=== PATIENT | male | born 1930 | race Caucasian/White ===

== ENCOUNTER 2019-01-16 19:38 | Emergency (ER) | payer MEDICARE ==
[~2019-01-16] VITALS: Wt 102.1 kg
[~2019-01-16 19:38] MED LIST: ASPIRIN325 MG PO; DILTIAZEM HCL30 MG PO; DOXYCYCLINE MO100 MG PO; DOXYCYCLINE100 M2 PO; LASIX20 MG PO; LISINOPRIL2.5 MG PO; MAGNESIUM OXID400 MG PO; NADOLOL40 MG PO; NOVOLOG 70/30 M10 ML SC; PANTOPRAZOLE40 M1 PO; PANTOPRAZOLE40 MG PO; POTASSIUM CITRA PO; RITE AID ACID150 MG PO; SIMVASTATIN40 MG PO; STOOL SOFTENER100 MG PO; TOPROL XL50 MG PO; UROCIT-K 1010 MEQ PO; VITAMIN D1000 IU PO; VITAMIN D31000 IU PO; [UNRECOGNIZED DRUG - OTHER]
[2019-01-16] MEDS ORDERED: PREDNISONE20 M1 PO (20:00)
== END 2019-01-16 20:13 | disposition home or self-care (01) ==
LOC: ED 19:38
DX: T63.441A Toxic effect of venom of bees, accidental (unintentional), initial encounter (principal); Z79.899 Other long term (current) drug therapy; Z79.82 Long term (current) use of aspirin; Y92.89 Other specified places as the place of occurrence of the external cause

== ENCOUNTER 2019-09-07 11:00 | Inpatient (IN) | payer MEDICARE ==
[~2019-09-07] VITALS: Ht 177.8 cm; Wt 96.2 kg
[~2019-09-07 11:00] MED LIST changes: +PREDNISONE20 M1 PO
[2019-09-07 11:16] VITALS: BP 170/105
[2019-09-07 11:57] LABS: BASO % 0.1 % (0.0-1.0); EOS % 0.1 % (1.0-4.0); HEMOGLOBIN 14.8 g/dl (14.0-18.0); MEAN CELL VOLUME 99.5 fl (80.0-94.0); MEAN CORPUSCULAR HGB 33.5 pg (27.0-31.0); MEAN CORPUSCULAR HGB CONC 33.6 g/dl (33.0-37.0); MEAN PLATELET VOLUME 10.6 fl (9.6-12.3); MONO # 0.5 10*3/uL (0.1-1.0); MONO % 5.5 % (3.0-9.0); PLATELET COUNT AUTOMATED 194 10*3/uL (130-400); RED BLOOD COUNT 4.42 10*6/uL (4.50-5.90); RED CELL DISTRI WIDTH 12.8 % (0-14.5); WHITE BLOOD COUNT 9.6 10*3/uL (4.8-10.8)
[2019-09-07 12:09] LABS: ACT PARTIAL THROMBO TIME 25.2 SECONDS (20.0-32.1)
[2019-09-07 12:15] LABS: ALBUMIN 3.9 gm/dl (3.1-4.5); CREATININE 1.4 mg/dL (0.70-1.30); POTASSIUM 4.8 mmol/L (3.5-5.1); TOTAL PROTEIN 7.6 gm/dL (6.4-8.2)
[2019-09-07 12:19] LABS: THYROID STIM HORMONE (HS) 3.9 uIU/ml (0.358-4.75); TROPONIN I 0.485 ng/ml (<0.045)
[2019-09-07 13:13] VITALS: BP 123/73
[2019-09-07 14:56] LABS: BACTERIA TRACE; BILIRUBIN NEGATIVE (NEGATIVE); BLOOD 3+ (NEGATIVE); CLARITY SL CLOUDY (CLEAR); COLOR YELLOW (YELLOW); EPITHELIAL CELLS 0-2; GLUCOSE 3+ (NEGATIVE); KETONE 2+ (NEGATIVE); LEUKO ESTERASE NEGATIVE (NEGATIVE); MUCOUS 1+; NITRITE NEGATIVE (NEGATIVE); RBC 51-100 rbc/hpf (0-2); UROBILINOGEN 0.2 E.U./dl (0.2-1.0); WBC 0-2 wbc/hpf (0-5)
[2019-09-07] MEDS ORDERED: MONTELUKAST SOD10 MG PO (15:30)
[2019-09-07 15:44] VITALS: BP 154/78
[2019-09-07 16:00] VITALS: BP 154/78
[2019-09-07 20:00] VITALS: BP 136/72
[2019-09-08 05:54] LABS: ALBUMIN 3.3 gm/dl (3.1-4.5); ALKALINE PHOSPHATASE 43 U/L (45-117); BUN 18 mg/dl (7-24); CHLORIDE 109 mmol/L (98-107); CHOLESTEROL 118 mg/dL (<200); CREATININE 0.88 mg/dL (0.70-1.30); HDL CHOLESTEROL 37 mg/dl (40-60); LDH 201 U/L (87-241); LDL CHOLESTEROL 56 mg/dL (9-159); PHOSPHOROUS 2.7 mg/dL (2.5-4.9); POTASSIUM 3.9 mmol/L (3.5-5.1); SGOT/AST 35 IU/L (3-35); SGPT/ALT 25 U/L (12-78); SODIUM 140 mmol/L (136-145); TOTAL PROTEIN 6.4 gm/dL (6.4-8.2); TRIGLYCERIDES 126 mg/dl (<150); VLDL CHOLESTEROL 25 mg/dL (6-40)
[2019-09-08 06:05] LABS: BASO % 0.3 % (0.0-1.0); EOS # 0.1 10*3/uL (0.0-0.4); EOS % 1.2 % (1.0-4.0); HEMATOCRIT 37.6 % (42.0-52.0); HEMOGLOBIN 12.5 g/dl (14.0-18.0); LYMPH # 2.1 10*3/uL (1.3-4.4); LYMPH % 26.5 % (27.0-41.0); MEAN CELL VOLUME 99.2 fl (80.0-94.0); MEAN CORPUSCULAR HGB CONC 33.2 g/dl (33.0-37.0); MEAN PLATELET VOLUME 10.3 fl (9.6-12.3); MONO # 0.8 10*3/uL (0.1-1.0); MONO % 9.9 % (3.0-9.0); NEUT # 4.8 10*3/uL (2.3-7.9); NEUT % 61.8 % (47.0-73.0); PLATELET COUNT AUTOMATED 150 10*3/uL (130-400); RED BLOOD COUNT 3.79 10*6/uL (4.50-5.90); RED CELL DISTRI WIDTH 12.9 % (0-14.5); WHITE BLOOD COUNT 7.7 10*3/uL (4.8-10.8)
[2019-09-08 06:09] LABS: TROPONIN I 0.257 ng/ml (<0.045)
[2019-09-08 07:50] LABS: VITAMIN D, 25-HYDROXY 31.4 ng/mL (30-100)
[2019-09-08 08:00] VITALS: BP 130/56
[2019-09-08 12:00] VITALS: BP 160/58
[2019-09-08 16:00] VITALS: BP 146/68
[2019-09-08 20:00] VITALS: BP 160/78
[2019-09-09] VITALS: BP 162/77
[2019-09-09 08:00] VITALS: BP 149/67
[2019-09-09] MEDS ORDERED: AVPAK AZITHROM250 MG PO (11:28)
[2019-09-09] MEDS ORDERED: PLAQUENIL200 MG PO (11:28)
[2019-09-09] MEDS ORDERED: OMNICEF300 MG PO (11:28)
[2019-09-09] MEDS ORDERED: TAMIFLU 75MG CA75 MG PO (11:28)
[2019-09-09] MEDS ORDERED: ASPIR LOW81 MG PO (11:42)
== END 2019-09-09 12:50 | disposition home or self-care (01) | DRG 871 ==
LOC: ED 11:00 → EDHOLD 14:35 → 5E 14:53
PROVIDERS: Internal Medicine; Student in an Organized Health Care Education/Training Program; ADMIT Emergency Medicine
DX: A41.9 Sepsis, unspecified organism (principal); N17.0 Acute kidney failure with tubular necrosis; J18.9 Pneumonia, unspecified organism; E87.2 Acidosis; S26.90XA Unspecified injury of heart, unspecified with or without hemopericardium, initial encounter; I24.8 Other forms of acute ischemic heart disease; E87.1 Hypo-osmolality and hyponatremia; I47.1 Supraventricular tachycardia; E44.1 Mild protein-calorie malnutrition; E86.0 Dehydration; R68.89 Other general symptoms and signs; R65.20 Severe sepsis without septic shock; R74.0 Nonspecific elevation of levels of transaminase and lactic acid dehydrogenase [LDH]; D53.9 Nutritional anemia, unspecified; E11.65 Type 2 diabetes mellitus with hyperglycemia; I10 Essential (primary) hypertension; Z79.899 Other long term (current) drug therapy; Z79.82 Long term (current) use of aspirin; Z96.651 Presence of right artificial knee joint; Z68.30 Body mass index [BMI] 30.0-30.9, adult; H91.90 Unspecified hearing loss, unspecified ear

== ENCOUNTER → 2019-11-03 | Outpatient (CLI) | payer MEDICARE ==
[~2019-11-03] MED LIST changes: +ASPIR LOW81 MG PO; +AVPAK AZITHROM250 MG PO; +MONTELUKAST SOD10 MG PO; +OMNICEF300 MG PO; +PLAQUENIL200 MG PO; +TAMIFLU 75MG CA75 MG PO
[2019-11-03 11:37] LABS: ALBUMIN 3.4 gm/dl (3.1-4.5); ALKALINE PHOSPHATASE 59 U/L (45-117); BUN 27 mg/dl (7-24); CHLORIDE 106 mmol/L (98-107); CREATININE 1.13 mg/dL (0.70-1.30); POTASSIUM 4.2 mmol/L (3.5-5.1); SGOT/AST 66 IU/L (3-35); SGPT/ALT 58 U/L (12-78); SODIUM 137 mmol/L (136-145); TOTAL PROTEIN 6.9 gm/dL (6.4-8.2)
== END | disposition home or self-care (01) ==
LOC: LAB 10:42
PROVIDERS: Student in an Organized Health Care Education/Training Program
DX: E11.65 Type 2 diabetes mellitus with hyperglycemia (principal); R19.7 Diarrhea, unspecified; R60.9 Edema, unspecified; I51.7 Cardiomegaly

== ENCOUNTER → 2019-11-07 | Outpatient (CLI) | payer MEDICARE ==
[~2019-11-07] MED LIST changes: +24 HOUR ALLER15.8 ML NAS; +ESCITALOPRAM OX10 MG PO; +TRULICITY0.75 MG/0. SC; +ZESTORETIC 10-1 EACH PO
== END | disposition home or self-care (01) ==
LOC: CARD 00:10
DX: I08.1 Rheumatic disorders of both mitral and tricuspid valves (principal)

== ENCOUNTER 2019-11-10 16:40 | Emergency (ER) | payer MEDICARE ==
[~2019-11-10] VITALS: Ht 177.8 cm; Wt 95.3 kg
[~2019-11-10 16:40] MED LIST changes: -24 HOUR ALLER15.8 ML NAS; -ESCITALOPRAM OX10 MG PO; -TRULICITY0.75 MG/0. SC; -ZESTORETIC 10-1 EACH PO
[2019-11-10 17:29] LABS: BASO % 0.2 % (0.0-1.0); EOS # 0.1 10*3/uL (0.0-0.4); EOS % 0.9 % (1.0-4.0); HEMATOCRIT 41.9 % (42.0-52.0); LYMPH # 1.4 10*3/uL (1.3-4.4); LYMPH % 17.4 % (27.0-41.0); MEAN CELL VOLUME 97.7 fl (80.0-94.0); MEAN CORPUSCULAR HGB 33.6 pg (27.0-31.0); MEAN CORPUSCULAR HGB CONC 34.4 g/dl (33.0-37.0); MEAN PLATELET VOLUME 9.9 fl (9.6-12.3); MONO # 0.6 10*3/uL (0.1-1.0); MONO % 7.5 % (3.0-9.0); NEUT # 6.1 10*3/uL (2.3-7.9); NEUT % 73.8 % (47.0-73.0); PLATELET COUNT AUTOMATED 164 10*3/uL (130-400); RED BLOOD COUNT 4.29 10*6/uL (4.50-5.90); RED CELL DISTRI WIDTH 12.6 % (0-14.5); WHITE BLOOD COUNT 8.2 10*3/uL (4.8-10.8)
[2019-11-10 17:40] LABS: BUN 22 mg/dl (7-24); CHLORIDE 103 mmol/L (98-107); CREATININE 1.13 mg/dL (0.70-1.30); POTASSIUM 3.8 mmol/L (3.5-5.1); SODIUM 134 mmol/L (136-145)
[2019-11-10 19:26] LABS: BILIRUBIN NEGATIVE (NEGATIVE); BLOOD 1+ (NEGATIVE); CLARITY CLEAR (CLEAR); COLOR YELLOW (YELLOW); GLUCOSE 3+ (NEGATIVE); KETONE NEGATIVE (NEGATIVE); LEUKO ESTERASE NEGATIVE (NEGATIVE); NITRITE NEGATIVE (NEGATIVE); UROBILINOGEN 0.2 E.U./dl (0.2-1.0)
[2019-11-10 19:36] LABS: BACTERIA TRACE; EPITHELIAL CELLS 0-2; WBC 0-2 wbc/hpf (0-5)
== END 2019-11-10 19:01 | disposition home or self-care (01) ==
LOC: ED 16:40
PROVIDERS: Emergency Medicine
DX: R53.83 Other fatigue (principal); F32.9 Major depressive disorder, single episode, unspecified; I10 Essential (primary) hypertension; E11.9 Type 2 diabetes mellitus without complications; M19.90 Unspecified osteoarthritis, unspecified site; Z79.899 Other long term (current) drug therapy; Z79.4 Long term (current) use of insulin

== ENCOUNTER 2019-11-12 12:17 | Inpatient (IN) | payer MEDICARE ==
--- NOTE | 2019-11-11 20:00 | NUR ---
CLIENT UNABLE TO REMEMBER WHO I WAS. HE HAS KNOWN ME AND WATCHED ME GROW UP SINCE I WAS 7YRS OLD. TRIED TO REMIND HIM THAT HIS DAUGHTER LORY AND I WERE BEST FRIENDS. PROCCUPIED WITH IS THROAT LOZENGES THAT WAS IN HIS POCKET. REFUSED TO COME DOWN TO DININGROOM TO EAT. SHUTS DOWN CONVERSATION BY TURNING OVER AND COVERING HEAD.
[~2019-11-12] VITALS: Ht 177.8 cm; Wt 95.3 kg
[2019-11-12 12:37] VITALS: BP 159/79
[2019-11-12 13:14] LABS: BASO % 0.2 % (0.0-1.0); EOS # 0.1 10*3/uL (0.0-0.4); EOS % 0.6 % (1.0-4.0); HEMATOCRIT 43.6 % (42.0-52.0); LYMPH # 1.7 10*3/uL (1.3-4.4); LYMPH % 18.4 % (27.0-41.0); MEAN CELL VOLUME 97.3 fl (80.0-94.0); MEAN CORPUSCULAR HGB 33.3 pg (27.0-31.0); MEAN CORPUSCULAR HGB CONC 34.2 g/dl (33.0-37.0); MEAN PLATELET VOLUME 9.9 fl (9.6-12.3); MONO # 0.8 10*3/uL (0.1-1.0); MONO % 8.3 % (3.0-9.0); NEUT # 6.7 10*3/uL (2.3-7.9); NEUT % 72.2 % (47.0-73.0); PLATELET COUNT AUTOMATED 177 10*3/uL (130-400); RED BLOOD COUNT 4.48 10*6/uL (4.50-5.90); RED CELL DISTRI WIDTH 12.6 % (0-14.5); WHITE BLOOD COUNT 9.2 10*3/uL (4.8-10.8)
[2019-11-12 13:25] LABS: ACT PARTIAL THROMBO TIME 24.1 SECONDS (20.0-32.1)
[2019-11-12 13:31] LABS: ALBUMIN 3.8 gm/dl (3.1-4.5); ALKALINE PHOSPHATASE 59 U/L (45-117); BUN 27 mg/dl (7-24); CHLORIDE 101 mmol/L (98-107); CREATININE 1.17 mg/dL (0.70-1.30); LIPASE 129 U/L (73-393); POTASSIUM 4.1 mmol/L (3.5-5.1); SGOT/AST 90 IU/L (3-35); SGPT/ALT 66 U/L (12-78); SODIUM 135 mmol/L (136-145); TOTAL PROTEIN 7.5 gm/dL (6.4-8.2); TROPONIN I < 0.015 ng/ml (<0.045)
[2019-11-12] MEDS ORDERED: ZESTORETIC 10-1 EACH PO (16:08)
[2019-11-12] MEDS ORDERED: ESCITALOPRAM OX10 MG PO (16:08)
[2019-11-12] MEDS ORDERED: TRULICITY0.75 MG/0. SC (16:09)
[2019-11-12] MEDS ORDERED: 24 HOUR ALLER15.8 ML NAS (16:10)
--- NOTE | 2019-11-12 17:08 | NUR ---
REPORT GIVEN TO [facility] NURSE.
--- NOTE | 2019-11-12 17:08 | NUR ---
[facility] HERE AT THIS TIME FOR PATIENT TRANSPORT FOR ADMISSION TO U.
--- NOTE | 2019-11-12 17:17 | NUR ---
RACHEL SHETH a 89 year old M admitted via wheel chair from the ADMITTING as a emergency 72 hr. hold admission. Arrived on unit at 1717. ALLERGIES: NKA. Vital signs are: [id number] 132/85. The client signed the following forms with stated understanding: Authorization For The Release of Medical Information, Clothing List, Consent to Voluntary Admission and Hospitalization, Consent and Release Forms/Receipt of Rights, Acknowledgement of Advance Directive Information, Behavioral Health Consent Form, and Informed Consent of Medications. Admitted under the services of Dr. IAN DRUMMOND,[facility]. A search was conducted and hazardous articles were removed. Client was oriented to the unit. AMOL GOMEZ
[2019-11-12 17:24] LABS: COLOR YELLOW (YELLOW)
[2019-11-12 17:25] LABS: BILIRUBIN NEGATIVE (NEGATIVE); BLOOD NEGATIVE (NEGATIVE); CLARITY CLEAR (CLEAR); GLUCOSE 3+ (NEGATIVE); KETONE NEGATIVE (NEGATIVE); LEUKO ESTERASE NEGATIVE (NEGATIVE); NITRITE NEGATIVE (NEGATIVE); PH 6.5 (5.0-9.0); SPECIFIC GRAVITY 1.015 (1.005-1.030); UROBILINOGEN 0.2 E.U./dl (0.2-1.0)
[2019-11-12 17:26] VITALS: BP 132/85
--- NOTE | 2019-11-12 17:26 | NUR ---
SPOKE WITH DR BUITRAGO AND ADVISED OF MEDICAL MANAGEMENT CONSULT NEEDED PER DR LINDSEY CONSULT UNDER DR العلي. NO FURTHER ORDERS AT THIS TIME.
[2019-11-12 17:27] LABS: EPITHELIAL CELLS 0-2; WBC 0-2 wbc/hpf (0-5)
[2019-11-12 17:28] VITALS: BP 132/85
--- NOTE | 2019-11-12 17:59 | NUR ---
DR RICHARD ON UNIT TO ASSESS PT. PER DR RICHARD ORDER BLOODSUGAR CHECKS, ACHS.
--- NOTE | 2019-11-12 20:10 | NUR ---
CLIENT UNABLE TO RECOGNIZE ME EVEN THOUGH HE HAS KNOWN ME SINCE I WAS 7 YRS OLD. I WAS BEST FRIENDS WITH HIS DAUGHTER LORY AND WE LIVED AT EACH OTHERS HOMES. TRIED TO REMIND HIM BUT UNSUCCESSFUL. MORE ORIENTED TO PRESENT LIKE HE WAS SUPPOSE TO BE IN THE [place] REPRESENTING THE CIVIL WAR. STATES HE HAS NO WILL TO LIVE, HE JUST WANTS TO LAY IN BED AND . SAYS HE HAS NOTHING LEFT. DISCUSSED HIS GRANDCHILDREN AND CHILDREN BUT NO CHANGE IN HIS THOUGHT PROCESS. REFUSED TO COME DOWN TO DININGROOM FOR SNACK. HE DOES SHUT DOWN WHEN HE GETS FRUSTRATED. HE WILL TURN AWAY COVER HEAD AND START TO CRY. WHEN I TRIED TO COMFORT HIM HE REPLIED "THANKS FOR THE TALK GO AWAY". REFUSED PM CARE
[2019-11-12 20:22] VITALS: BP 135/85
--- NOTE | 2019-11-13 02:37 | NUR ---
24 HR chart check completed.
--- NOTE | 2019-11-13 04:37 | NUR ---
YELLING OUT "I CAN'T SLEEP I can't do this" WENT TO TALK WITH HIM BUT UNABLE TO REDIRECT THAT HE HAS SLEPT, TOLD ME HE DIDN'T SLEEP, CAN'T PEE BECAUSE HE HASN'T HAD HIS LOZENGES, FOOD OR WATER. PROVIDED A CUP OF WATER FROM HIS DRESSER. INFORMED HIM WE WILL ASK DOCTOR FOR LOZENGES, AND THAT HE WAS ENCOURAGED TO COME TO DININGROOM TO EAT BUT HE REFUSED. YELLED NO I'M NOT GOING THERE. TURNED OVER AND COVERED HEAD. REFUSED TO SPEAK. WILL CONTINUE TO MONITOR.
--- NOTE | 2019-11-13 06:39 | NUR ---
BSG 157. NO COVERAGE UNTIL CERTAIN CLIENT IS GOING TO EAT BREAKFAST.
--- NOTE | 2019-11-13 06:39 | NUR ---
BSG 157. NO COVERAGE UNTIL CERTAIN CLIENT IS GOING TO EAT BREAKFAST.
[2019-11-13 07:44] VITALS: BP 151/65
--- NOTE | 2019-11-13 07:59 | NUR ---
Occupational therapy orders and nursing screen received. Will follow up with patient for completion of an OT evaluation. Thank you. Ginger Jones, OTR/L
--- NOTE | 2019-11-13 08:15 | NUR ---
Treatment Plan meeting was held via telephone with Dr. Mims, JOSE A Natarajan RN, and Cold Roll Inspector. Plan for discharge Next week. Will follow with family for discharge planning.
--- NOTE | 2019-11-13 08:15 | NUR ---
PHYSICAL THERAPY Screen and PT eval received will follow thank you Staci Santoro PT
[2019-11-13 08:49] LABS: BASO % 0.3 % (0.0-1.0); EOS # 0.1 10*3/uL (0.0-0.4); EOS % 1.3 % (1.0-4.0); HEMATOCRIT 47.4 % (42.0-52.0); LYMPH % 33.1 % (27.0-41.0); MEAN CELL VOLUME 98.3 fl (80.0-94.0); MEAN CORPUSCULAR HGB 33.2 pg (27.0-31.0); MEAN CORPUSCULAR HGB CONC 33.8 g/dl (33.0-37.0); MEAN PLATELET VOLUME 10.3 fl (9.6-12.3); MONO # 0.7 10*3/uL (0.1-1.0); NEUT # 5.1 10*3/uL (2.3-7.9); NEUT % 57.1 % (47.0-73.0); PLATELET COUNT AUTOMATED 197 10*3/uL (130-400); RED BLOOD COUNT 4.82 10*6/uL (4.50-5.90); RED CELL DISTRI WIDTH 12.7 % (0-14.5)
[2019-11-13 09:19] LABS: ALBUMIN 3.9 gm/dl (3.1-4.5); ALKALINE PHOSPHATASE 58 U/L (45-117); BUN 23 mg/dl (7-24); CHLORIDE 101 mmol/L (98-107); CHOLESTEROL 153 mg/dL (<200); CREATININE 1.17 mg/dL (0.70-1.30); HDL CHOLESTEROL 50 mg/dl (40-60); LDL CHOLESTEROL 78 mg/dL (9-159); POTASSIUM 4.3 mmol/L (3.5-5.1); SGOT/AST 91 IU/L (3-35); SGPT/ALT 64 U/L (12-78); SODIUM 134 mmol/L (136-145); TOTAL PROTEIN 7.7 gm/dL (6.4-8.2); TRIGLYCERIDES 126 mg/dl (<150); VLDL CHOLESTEROL 25 mg/dL (6-40)
--- NOTE | 2019-11-13 09:51 | NUR ---
PHYSICAL THERAPY Physical Therapy evaluation completed on 3N with full evaluation to follow. Low complexity PT evaluation per chart review and evaluation, [id number]. Recommend physical therapy per plan of care and Home Health upon discharge. Thank you for this referral. Aisha Gonzalez,PT,DPT
[2019-11-13 10:13] LABS: VITAMIN D, 25-HYDROXY 38.7 ng/mL (30-100)
--- NOTE | 2019-11-13 10:13 | NUR ---
DR. ADAM NOTIFIED NOTIFIED OF PODIARTY CONSULT FOR NAIL CARE.
--- NOTE | 2019-11-13 10:18 | NUR ---
Occupational Therapy evaluation completed on 3N with full evaluation to follow. Recommend occupational therapy per plan of care and return home upon discharge. Thank you for this referral. Angelina Verma OTR/L
--- NOTE | 2019-11-13 12:05 | NUR ---
Spoke with patient in Quietroom area. Pt. states he is "Feeling Hopeless since they changed his Insulin Around at home he is struggling to control his blood sugars". "Feeling overwhelmed due to not being able to do things he normally did before that Virus". Pt. is very Hard of Hearing. Pt. Lives at Home alone still drives. His daughter Ami Lives in [place] and he talks to he every day. Pt. states he has "Been having issues with his bowels and feeling sad due to not being able to go to cheondoism" "I miss my ". Pt. tearful. Reassurance Provided. Will Follow.
--- NOTE | 2019-11-13 12:48 | NUR ---
Spoke to [facility] at [facility] regarding precertification for inpatient behavioral health. Information given. Awaiting return call. Pending auth # [id number].
--- NOTE | 2019-11-13 13:20 | NUR ---
P: depressed state, states he just wants to lay down and , "I just cant get moving" I: Spoke with pt about interaction and ability to get moving increases energy and ability to move will help. Also spoke with pt about things he enjoys, due to [place] he has a hard time communicating and will be come frustrated, attempted to type with pt which he was not receptive to. R: Pt encouraged to get up for breakfast, came to lounge, then got shower shorlty after consuming meal. Smiling when spoken to continues to isolate with himself. P: continue to promote pt ambulation, and activities with group surroundings. no HI. SI statements are passive with no plans, medication compliant this shift. eating without good appetite.
--- NOTE | 2019-11-13 13:33 | NUR ---
IP 10 days daya per Amalia at [facility], ARTIE/NRD 11/20. Ref # [id number]
--- NOTE | 2019-11-13 14:47 | NUR ---
Attempted to call patient daughter Ami to discuss discharge planning. Unable to leave a message.
--- NOTE | 2019-11-13 15:18 | NUR ---
Spoke with Patient Daughter Ami via telephone. Ami states that she would like for Pt. to return home at discharge and that he may need some home health. Ami states that patient has been struggling with being at home during the virus. Pt. Lives alone and still drives. Ami states patient may benefit from Home Health at discharge.
--- NOTE | 2019-11-13 15:28 | NUR ---
Shift chart check completed.
--- NOTE | 2019-11-13 17:12 | NUR ---
PT COMPLAINT THAT BATTERY IN LEFT HEARING AID IS GOING , ATTEMPTED TO REPLACE WITH PT SIZE 13 IN STORAGE, THIS IS NOT THE PROPER SIZE. DAUGHTER NOTFIED AND WILL ATTEMPT TO FIND PACKAGES SHE JUST BOUGHT.
[2019-11-13 19:57] VITALS: BP 131/66
--- NOTE | 2019-11-13 21:35 | NUR ---
CAME DOWN FOR SNACK. APOLOGIZED FOR HIS NEGATIVE LANGUAGE YESTERDAY BUT HE IS ONLY TELLING THE TRUTH. CONTINUES TO BLAME CHANGE IN INSULIN THAT CAUSED HIS SUGAR TO GO UP AND WEIGHT GAIN. THE VIRUS HAS CAUSED HIS DESIRE TO NOT LIVE ANYMORE AND TO JOIN HIS . DENIES ANY THOUGHTS OF HURTING SELF BUT JUST WANTS TO GO TO SLEEP AND NOT WAKE UP. EMOTIONAL SUPPORT PROVIDED
--- NOTE | 2019-11-14 02:11 | NUR ---
24 HR chart check completed.
--- NOTE | 2019-11-14 06:19 | NUR ---
SLEPT A BROKEN 5 HOURS.
--- NOTE | 2019-11-14 06:35 | NUR ---
AM BEDSIDE GLUCOSE 89
--- NOTE | 2019-11-14 07:05 | NUR ---
PHYSICAL THERAPY Patient seen this am for therapy visit and was just awakening supine in bed upon therapist arrival. Patient identified by name / and was mostly pleasant this morning voicing no new c/o's. OT assistant womens volleyball coach was also present for observation only this session as patient is Independent with all transfers. Patient ambulates without AD, ad vinay in room to bathroom, distant Supervision, then additional 150'x 1, demonstrating slow, steady britany. Patient tolerated eyes open / closed without LOB, single leg stance, R side 1 second, L side 2 seconds prior to LOB. Patient returned to Quiet room awaiting breakfast, under [facility] staff Supervision. Will continue per POC as tolerated, total treatment time 17 minutes. Jeffrey Vazquez, ELEVATOR INSTALLER APPRENTICE
--- NOTE | 2019-11-14 07:20 | NUR ---
OT NOTE Pt was seen this A.M. 1:1 for 20 minute OT session with SENIOR TREASURY ANALYST and nursing staff present for observation only. Upon arrival pt was supine in bed. Pt identified by name and and had no complaints at this time. Pt transferred supine to sit EOB I. While sitting EOB pt donned B socks and adjusted his gown while standing I. Sit to stand completed from bed level followed by functional mobility to the bathroom I where he completed all toileting tasks and sink side grooming I. Challenged pt's dynamic standing balance while weight shifting, crossing midline, and reaching over all planes and pt was able to maintain G- standing balance throughout. Pt tolerated aprox 15 minutes of activity before sitting for a seated rest break. Pt was left sitting upright in the quiet room at the table for breakfast under [facility] staff supervision. Continue with rec D/C plan to return home. ANGIE Matrin/Gabby
[2019-11-14 07:46] VITALS: BP 135/81
--- NOTE | 2019-11-14 08:15 | NUR ---
Treatment Plan meeting was held via telephone with Dr. Mims, JOSE A Natarajan RN, METER INSTALLER-S and Crusher Machine Operator. Plan for discharge Tuesday/Next Week.
--- NOTE | 2019-11-14 13:14 | NUR ---
P: PT HAS PASSIVE NEGATIVE STATEMENTS OF WANTING TO "JUST ", GUILTY DUE TO CAUSING FINANCIAL RUIN TO HIS DAUGHTERS, HOPELESS HELPLESS. REFUSED LUNCH I&R: PT BLOOD SUGAR WAS 66, TAKEN AN ENSURE AND ENCOURAGED TO DRINK, INFORMED HIM THAT BY LAYING THERE ODING NOTHING WAS NOTHELPING HIM TO FEEL BETTER. pT STATED HE WANTED TO JUST GO TO SLEEP AND NOT WAKE UP SO HIS DAUGHTERS COULD HVE WHATEVER MONEY THEY COULD FROM HIM. PT WOULD NOT SIT UP IN BED CONTINUED TO PULL BLANKET OVER HIS REQUESTING TO BE LEFT ALONE. PT DID DRINK THE ENSURE. P: CONTINUE TO ENCOURAGE INTERACTION THROUGH OUT, ATTEMPT TO COMMUNICATE CLEARLY WITH PT. eVEN THOUGH HE IS EXTREMELY [place]. EVEN WITH CLEAN HEARING AIDES AND NEW BATTERIES. PT MEDICATION COMPLIANT, WILL CONTINUE TO MONITOR AND CONTRACT FOR SAFETY
--- NOTE | 2019-11-14 17:19 | NUR ---
DR. RICHARD MADE AWARE OF PATIENT'S BLOOD SUGARS TODAY AND HUMULIN 70-[address] RICHARD STATES TO HOLD AT THIS TIME.
--- NOTE | 2019-11-14 18:29 | NUR ---
PT REFUSED 1800 MEDS, STATES "NO. I DONT WANT ANYTHING". ATTEMPTS TO EDUCATE INEFFECTIVE. PT OFFERS NO FURTHER EXPLANATION AT THIS TIME.
[2019-11-14 20:00] VITALS: BP 121/69
--- NOTE | 2019-11-14 23:55 | NUR ---
P-DEPRESSED MOOD, ISOLATIVE I-REDIRECTION WITH 1:1 THEAPEUTIC INTERVENTIONS AND COMMUNICATION. EDUCATE AND ENCOURAGE MEDICATION COMPLIANCE R-MEDICATION NONCOMPLIANT AT HS. PATIENT REFUSED NOURISHMENT BUT PROVIDED FLUIDS AT HS. PATIENT WITH DEPRESSED MOOD AT HS. PATIENT STATING "I JUST DON'T WANT ANYTHING FROM ANYBODY RIGHT NOW". PATIENT REQUESTING THAT HIS DAUGHTER BE CALLED TO PUT UP HIS OLD CIVIL WAR VERONICA. DAUGHTER KWAME UPADATED AND AWARE OF PATIENT REQUEST. PATIENT WITH NO HALLUCINATIONS OR DELUSIONS. PATIENT WITH NO HOMICIDAL IDEATIONS AND DENIES SUICIDAL IDEATIONS AT THIS TIME. PATIENT HARD OF HEARING. PATIENT COMPLIED WITH TAKING REMERON AT HS. P-CONTINUE TO ENCOURAGE MEDICATION COMPLIANCE, ENCOURAGE GROUP THERAPY WHILE AWAKE
--- NOTE | 2019-11-15 01:50 | NUR ---
THIS NURSE TALKED TO DAUGHTER, KWAME AT . PATIENT'S DAUGHTER KWAME INQUIRING ABOUT HER FATHER. THIS NURSE UPDATED PATIENT'S DAUGHTER ABOUT PATIENTS POOR PO AND SAD AFFECT AND ISOLATING SELF. PATIENT'S DAUGHTER REVIEWED MEDICATIONS WITH THIS NURSE. PATIENT'S DAUGHTER STATED "MY FATHER IS NOT SUPPOSED TO BE ON THAT ANTIBIOTIC. HE WAS SICK AND HAD PNEUMONIA AROUND MID AUGUST. HE WAS SUPPOSED TO STOP THAT ANITIBIOTIC ALONG TIME AGO. PATIENT'S DAUGHTER ALSO STATED "HE HAD AN ECHO DONE LAST WEEK AND A HOME THERAPY TEACHER WAS RECOMMENDED
--- NOTE | 2019-11-15 06:01 | NUR ---
DR RAVI UPDATED ABOUT BLOOD SUGAR RESULTS THIS AM. DR RAVI WITH ORDER TO HOLD 70/[address] RAVI TO LOOK INTO ORDER AND SEE ABOUT CONTINUING WITH JUST SLIDING SCALE UNTIL APPETITE IMPROVES. DR RAVI UPDATED ABOUT ANTIBIOTIC AND INFORMED THAT THIS NURSE SPOKE WITH DAUGHTER KWAME AND PATIENT WAS SUPPOSE TO COMPLETE MEDICATION IN AUGUST. DR RAVI TO REVIEW AND UPDATE MEDICAL DOCTORS IN AM TO LOOK INTO ANTIOBIOTIC THERAPY USE
--- NOTE | 2019-11-15 06:37 | NUR ---
Patient slept approx. 7.5 hours throughout shift. Q 15 minute safety checks continued and maintained.
--- NOTE | 2019-11-15 07:15 | NUR ---
OT NOTE Prior to coming to the floor spoke with nurse Wong and reported that therapy was coming to the floor to treat this pt. Attempted to see pt this A.M. for OT session and upon arrival pt was supine in bed. Pt was easily aroused to verbal stimuli. When questioned how he was doing today pt gave a thumbs down motion. Pt only further explained as "I have not ate since yesterday, I have not taken any of my medicine, and I honestly just don't feel up to therapy or anything at all." Pt easily engaged in conversation about his interest however continued to decline therapy at this time. Pt was left supine in bed and notified U staff. Continue with POC as able. ANGIE Martin/Gabby
--- NOTE | 2019-11-15 07:15 | NUR ---
PHYSICAL THERAPY Patient was still in bed this am when approached several times for therapy visit and declined treatment, stating he did not feel like getting up yet. Patient also reported not sleeping well last night and requested to be left alone at this time. Nursing notified of patient refusal this date. Will continue per POC as able. OT retail assistant was also present for observation only this morning. Jeffrey Vazquez, CALCIMINER
[2019-11-15 08:00] VITALS: BP 140/86
--- NOTE | 2019-11-15 08:15 | NUR ---
Treatment Plan meeting was held via telephone with Dr. Mims RN, WARBLE SAW OPERATOR-S and Dental Billing Specialist. Plan for discharge Next week. Pt. will return home.
--- NOTE | 2019-11-15 08:58 | NUR ---
rounded and updated on pt progress via telemedicine. Medication orders updated per .
--- NOTE | 2019-11-15 11:51 | NUR ---
Met with pt individually this AM. Pt was pleasant and talkative. Pt shared that "things went downhill" when he was notified by [facility] that pt's insulin was being changed to a less expensive insulin. Pt stated that he began to worry when he saw his blood sugars climbing with the new insulin. Pt also shared that isolating has been very difficult for him. Pt admits to being depressed and now very concerned about his finances. Pt stated that he "has been dumb" with his money and now claims that he has high debt and a house that is in need of repairs. Pt further claims that he cannot return to his house because of an issue with water in his basement. Pt remarked numerous times that he "has been a dummy" for not addressing repair issues for his house and spending money on luxuries such as [place] [employer] football tickets and Civil War memorabilia. Pt also did speak about the rebekah that he has in participating in Civil War reenactments and participating in parades. Pt also spoke of his love for football and basketball. This flex o writer operator observed that pt did have difficulty finding some words during conversation and recalling some recent memories. Pt gave permission for this flex o writer operator to speak to pt's daughter Ami who pt states has some awareness of pt's finances. Pt is voicing that he is overwhelmed and is feeling hopeless. Pt was tearful at times throughout coversation but was also able to verbalize about joys in his life. Pt admits to feeling depressed and states that he is unable to experience a restful sleep due to financial stressors.
--- NOTE | 2019-11-15 12:14 | NUR ---
Left a voicemail message for pt's daughter Ami requesting a return call.
--- NOTE | 2019-11-15 13:39 | NUR ---
Spoke with pt's daughter Ami and conveyed to her the concerns that pt had shared with this publicity writer. Ami stated that she is not aware of a major concern with water in pt's basement. The drain did recently overflow and Ami has a call out to someone to look at it. Ami also stated that she has recently taken over paying pt's bills. From what she has seen there should be no significant concerns with pt's finances unless she hasn't discovered it yet. Per Ami, she sees no reason why pt could not return to his own home.
--- NOTE | 2019-11-15 16:20 | NUR ---
Extensive time spent with pt this afternoon. Pt sought out this quality analyst/technical writer and stated that it helped him to talk earlier and was wanting to talk further. Spent time with pt discussing his concerns about his house and assisted pt in problem solving. Pt spoke in depth about the activities that pt is involved in with the Civil War. Pt shared his knowledge of Civi War history. Pt spoke of traveling to Civil War activites within [place] and in other states. He reminisced about traveling with his daughters and grandchildren to different was sites and museums. Pt's mood appears to be improving. He smiles appropriately during conversation. He continues to admit to depression. He demonstrates insight as he states that he believes that he has spent too much time alone "due to the virus."
--- NOTE | 2019-11-15 18:53 | NUR ---
P- Depressed mood, feeling overwhelmed, poor PO intake and ADL maintenance, medication noncompliance I- Orientation, mood and behaviors assessed. Assessed pt for SI/HI, hallucinations, paranoia and/or delusions. Medications administered as per physician's orders, med compliance encouraged. Assistance with ADL care provided as needed. Encouraged pt to attend and participate in batista milieu groups and activities. R- Pt is alert and oriented x4. Memory appears to be intact. Resps easy and even on room air. Pt is very [place] but is able to communicate effectively. Upon this RN's first interaction with this pt this AM pt's mood presents as overwhelmingly depressed and anxious. Affect flat. Pt guarded, appeared very overwhelmed and reluctant to converse with staff. Pt refused to take AM medications. This RN spent lengthy 1:1 with pt. Pt slowly became more interactive with this RN. Pt states a large portion of his depression and anxiety is stemming from the fact that pt states he neglected fixing water leaking into his basement for 40 years and now it is so bad that he is unable to return to his home. Pt states "I didn't do what I should've done all these years and now it's become my daugther's burden. I didn't handle my finances the way I should've and now it'll put my daughter in financial ruin. She's supposed to be retiring soon and she'll never financially recover from this and it's my fault". Empathized with pt and encouraged pt that everyone makes mistakes and all we can do now is focus on how we can make things better. At first pt disagreed and ruminated again and again over the same topics. Pt then began to speak about the changes to his insulins that were done which per pt report is "what started this whole thing". Discussed this further. Discussed with pt the fact that we are not able to currently give him his ordered insulin since he isn't eating and drinking. Pt stated he wasn't eating because he wasn't able to move his bowels. This RN assured pt if he needed something to help him move his bowels we could help with that. Pt agreeable to taking stool softener or laxative. Pt also c/o dry mouth and allergies. Assured pt we could ask the doctor about getting him allergy medication, pt states "no. I don't want it right now". Pt discussed with this RN his recent lack of motivation to complete ADLs, poor appetite, poor sleep and difficulty problem solving. Pt motioned to his roberts and states "I never look this bad". Pt spoke of being upset that his whole routine being disrupted due to COVID-19. Empathized with pt. Provided education to pt regarding symptoms of depression and encouraged pt to give medications a chance to help relieve some of these symptoms. Educated pt that had added a new medication for tonight to help increase the effectiveness of his antidepressant and help him sleep better. Pt expressed understanding and agrees to try these medications. Pt agreeable to sign voluntary admission at this time for further treatment. Encouraged pt that we can assist him with showering and shaving roberts when he is ready, offered to pt that this might make him feel better. Pt states "yeah, it might". Shortly after this RN left pt's room pt came to nurse's station and reported he no longer needed medication to help move his bowels and was looking forward to eating lunch. Pt states "You made me want to do it, I want to get better". Pt ate lunch and dinner. Pt has been markedly less isolative, interacting with staff and peers. Took 1800 medication. No distress noted. P- Plan to continue current treatment, continue to monitor mood and behaviors, provide appropriate reorientation, redirection and 1:1 as needed. Continue to encourage medication compliance as well as group attendance and participation.
[2019-11-15 20:00] VITALS: BP 116/73
--- NOTE | 2019-11-16 00:35 | NUR ---
PATIENT ALERT AND ORIENTED. PATIENT WITH NO SHORT TERM OR INDUSTRIAL RECRUITER MEMORY DEFICITS. PATIENT WITH NO RESPIRATORY DISTRESS. PATIENT MEDICATION COMPLIANT AT HS. PATIENT WITH NO HALLUCINATIONS OR DELUSIONS. PATIENT WITH NO HOMICIDAL IDEATIONS AND DENIES SUICIDAL IDEATIONS. PATIENT IN HALLWAY AND ROOM INTERACTING WITH PEERS AND NURSING STAFF THIS SHIFT. CONTINUE TO ENCOURAGE MEDICATION COMPLIANCE, ENCOURAGE GROUP THERAPY WHILE AWAKE
--- NOTE | 2019-11-16 06:23 | NUR ---
Patient slept approx. 6.5 hours throughout shift. Q 15 minute safety checks continued and maintained.
--- NOTE | 2019-11-16 07:19 | NUR ---
PHYSICAL THERAPY PT treatment complete. Total treatment time: 10 minutes. Patient independent in room with bed mobility and gait. Patient gait trained into hallway 40'x1, participated in TUG = 13 seconds without AD, no LOB noted. Patient gait trained 150' in hallway with no LOB and no assist. Patient gait trained to quiet room to eat breakfast. Patient remained in quiet room at end of PT session. Patient has met all goals. Recommend return home at discharge. Thank you. Aisha Gonzalez,PT,DPT.
--- NOTE | 2019-11-16 07:30 | NUR ---
OT NOTE Prior to coming to the floor spoke with nurse Wong and reported that therapy was coming to the floor to treat this pt. Pt was seen this A.M. 1:1 for 18 minute OT session with PT and nursing staff present for observation only. Upon arrival pt was supine in bed. Pt identified by name and and had no complaints at this time, pt reported "I am feeling much better today." Pt transferred supine to sit EOB I followed by satya WILKERSON while seated EOB. Sit to stand completed from bed level followed by functional mobility throughout his room I while gathering supplies from various heights while maintaining G standing balance. Pt then completed toileting task, clothing management, and sink side grooming at I level. Functional mobility then completed to the quiet room for breakfast where he was left under [facility] staff supervision. Continue with rec D/C plan to return to home. ANGIE Martin/Gabby
[2019-11-16 07:54] VITALS: BP 152/82
--- NOTE | 2019-11-16 08:00 | NUR ---
Patient in dining room eating breakfast with peers. Respirations easy and regular. Vital signs stable. No overt distress. Telehealth assessment by TANIA Suarez. Updates provided. JOSEF AGUIRRE
--- NOTE | 2019-11-16 08:15 | NUR ---
Treatment plan meeting was held via telephone with JOSE A Natarajan RN, OVEN EQUIPMENT REPAIRER-S and Machined Parts Quality Inspector. Plan for discharge was tentative for Next Week. BEVERAGE SALES CONSULTANT is going to ask Dr. Mims if Pt. can possibly discharge today. Pt. is doing Better and Mood has improved.
--- NOTE | 2019-11-16 09:21 | NUR ---
PHYSICAL THERAPY CO-SIGN I approve of the Physical Therapy notes written above. APPLE HART PT, DPT
--- NOTE | 2019-11-16 09:21 | NUR ---
PHYSICAL THERAPY Patient has progressed well with skilled PT services. Patient is independent in room and throughout BHU with gait. Patient has met all goals, with TUG =13 seconds, and has no PT needs at this time. Discharge from PT this date. Recommend return home at discharge. Thank you. Aisha Gonzalez, PT, DPT.
--- NOTE | 2019-11-16 09:33 | NUR ---
DR CALVERT ON UNIT TO ASSESS PT, UPDATE PROVIDED.
--- NOTE | 2019-11-16 13:44 | NUR ---
OCCUPATIONAL THERAPY CO-SIGN I approve of the Occupational Therapy notes written above. Angelina Verma OTR/L
--- NOTE | 2019-11-16 13:45 | NUR ---
Pt was evaluated on November 13, 2019 for Occupational therapy services. Pt has progressed well with OT treatment at this time. He is (I) with ADLs, transfers and functional mobility. Pt to be d/c from OT services at this time due to his independent functional status. Recommend pt return home at d/c. Thank you for this referral. Angelina Verma OTR/Gabby
--- NOTE | 2019-11-16 14:29 | NUR ---
GROUP THERAPY PT DECLINED TO COME TO GROUP. PT REMAINED IN ROOM RESTING QUIETLY.
[2019-11-16 20:00] VITALS: BP 148/86
--- NOTE | 2019-11-17 00:44 | NUR ---
P-DEPRESSED MOOD, ISOLATIVE, ANXIOUS I-REDIRECTION WITH 1:1 THEAPEUTIC INTERVENTIONS AND COMMUNICATION. EDUCATE AND ENCOURAGE MEDICATION COMPLIANCE R-MEDICATION NONCOMPLIANT AT HS. PATIENT REFUSED NOURISHMENT BUT PROVIDED FLUIDS AT HS. PATIENT WITH DEPRESSED MOOD AT HS. PATIENT PREOCCUPIED WITH HIS FINANCIAL SITUATION AND ABOUT HIS DAUGHTERS. PATIENT STATING "I WISH I NEVER MADE ALL THOSE MISTAKES WHEN I WAS YOUNGER AND MAYBE I WOULD HAVE THE MONEY NOW. I SHOULD HAVE BEEN SMARTER". PATIENT PACING IN HIS ROOM AND ANXIOUS. PATIENT STATING "I WILL TAKE MEDICATION IF YOU THINK IT WILL HELP, I JUST DON'T WANT TO HEAR IT WILL TAKE TIME TO WORK. THAT IS ALL EVERYONE TELLS ME". PATIENT MEDICATED WITH ATIVAN 1MG PO AND WITH EFFECTIVE RESULTS AT THIS TIME. PATIENT STATING "I WANT TO TALK TO THE DOCTOR TOMORROW. I HAVE TO GET OUT OF HERE. I MAY NOT HAVE A HOME TO GO BACK TO. THIS IS A TERRIBLE SITUATION THAT I'M IN. I'VE BEEN HERE FOR THREE WEEKS AND I SIGNED A PAPER SAYING I HAD TO BE HERE FOR TWO MORE WEEKS. ALL I'M DOING IS LAYING HERE". THIS NURSE ENCOURAGED PATIENT TO GET OUT OF HIS ROOM AND TAKE A WALK. PATIENT AGREED TO WALKING IN THE HALLWAY BEFORE RETURNING TO BED. PATIENT WITH NO HALLUCINATIONS OR DELUSIONS. PATIENT WITH NO HOMICIDAL IDEATIONS AND DENIES SUICIDAL IDEATIONS AT THIS TIME. PATIENT HARD OF HEARING. P-CONTINUE TO ENCOURAGE MEDICATION COMPLIANCE, ENCOURAGE GROUP THERAPY WHILE AWAKE
--- NOTE | 2019-11-17 05:58 | NUR ---
PATIENT SLEPT 6-7 HOURS OF UNINTERRUPTED SLEEP THROUGHOUT SHIFT. Q 15 MINUTE CHECKS MAINTAINED. 24 HR chart check completed.
[2019-11-17 07:33] VITALS: BP 149/85
--- NOTE | 2019-11-17 08:42 | NUR ---
DR CALVERT ON UNIT TO ASSESS PT, UPDATE PROVIDED.
--- NOTE | 2019-11-17 14:52 | NUR ---
P: TEARFUL, ISOLATIVE, ASKED ABOUT SUICIDAL IDEATIONS, PATIENT STATED "I HAVE THOUGHTS OF HURTING SELF IF I COULD" NO PLAN, ASKED PATIENT TO CONTRACT FOR SAFETY, PATIENT STATED "I CAN'T ANSWER THAT ONE" NO GUNS OR WEAPONS. I: NURSE PRACTIONER ON UNIT AND NOTIFIED. CONTINUE 15 MINUTE SAFETY CHECK AND ENCOURAGE PATIENT TO COME OUT OF ROOM FOR SOCIAL INTERACTIONS. R: EFFECTIVE. PATIENT UP AND OUT OF ROOM THIS AFTERNOON. INTERACTIVE WITH NURSING STAFF. PATIENT IS ALERT TO PERSON, PLACE, TIME AND SITUATION. ABLE TO VOICE NEEDS. VERY HARD OF HEARING. MOOD IS DEPRESSED. DENIES ANY HALLUCINATIONS, DLEUSION, HI OR PAIN. 1 PERSON ASSIST WITH ACTIVITIES OF DAILY LIVING, CONTINENT OF BOWEL AND BLADDER. SET UP FOR MEALS, INTAKES VARY WITH MUCH ENCOURAGEMENT. MEDICATION COMPLIANT WITH EDUCATION. Q 15 MINUTE SAFETY CHECKS. AMBULATORY WITH 1 PERSON ASSIST. CONTINUE TO MONITOR SI, MOOD AND MEDICATION COMPLAINCE. PROVIDE ONE ON ONE FOR EMOTIONAL SUPPORT, CONTRACT FOR SAFETY, ENCOURAGE GROUP PARTICIPATION AND REDIRECT NEEDED. P:
[2019-11-17 20:01] VITALS: BP 132/78
--- NOTE | 2019-11-18 00:38 | NUR ---
P-DEPRESSED MOOD, ISOLATIVE. I-PROVIDE 1:1 WITH THERAPEUTIC INTERVENTIONS. PROVIDE SUPPORT. ENCOURAGE MEDICATION COMPLIANCE AND EDUCATE. MONITOR SLEEP. R-PATIENT ALERT AND ORIENTED X3 WITH CONFUSION. PT ISOLATIVE TO SELF AND GUARDED THIS HS, STATED TO THIS RN "YOU JUST WOULDNT UNDERSTAND". PT WOULD NOT FURTHER ELABORATE TO WHAT WAS BOTHERING HIM AND REFUSED SUPPORT. PT ALSO WITH UNDERLYING IRRITABILITY NOTED AND WILL WALK AWAY FROM STAFF MID CONVERSATION. PT GIVEN SPACE TO HELP CALM. PT ALSO ENCOURAGED TO SHOWER TO ASSIST IN HELPING HIM RELAX. BOTH INTERVENTIONS EFFECTIVE AT THIS TIME. PT MEDICATION COMPLIANT WITHOUT DIFFICULTY AFTER REVIEW. PT VOICES NO SI/HI, HALLUCINATIONS OR PAIN. PT CONTRACTED FOR SAFETY. PT AMBULATORY WITH A STEADY GAIT, INDEPENDENT IN ADL'S, CONTINENT OF BOWEL AND BLADDER. PT CURRENTLY LAYING DOWN WITH EYES CLOSED, RESPIRATIONS EASY AND REGULAR, NO SIGNS OR SYMPTOMS OF DISTRESS NOTED. P-CONTINUE TO MONITOR MOOD AND BEHAVIORS. MAINTAIN Q 15 MIN CHECKS AND PRN FOR SAFETY.
--- NOTE | 2019-11-18 05:33 | NUR ---
24 HOUR CHART CHECK COMPLETED.
--- NOTE | 2019-11-18 05:58 | NUR ---
PATIENT OBSERVED ON Q 15 MIN CHECKS TO HAVE SLEPT APPROX 5 HOURS WITH X1 BRIEF AWAKENING TO USE THE RESTROOM. NO DISTRESS NOTED.
--- NOTE | 2019-11-18 06:43 | NUR ---
BEDSIDE BLOOD GLUCOSE 156.
[2019-11-18 07:39] VITALS: BP 131/66
--- NOTE | 2019-11-18 14:36 | NUR ---
P: PREOCCUPIED WITH FINANCIAL CONCERNS; DEPRESSED MOOD. I: ONE ON ONE FOR EMOTIONAL SUPPORT R: EFFECTIVE. PATIENT IS ALERT TO PERSON, PLACE, TIME AND SIUTATION, ABLE TO VOICE NEED. MOOD IS SLIGHTLY DEPRESSED. DENIES ANY HALLUCINATIONS, DELUSION, HI/SI OR PAIN. MEDICATION COMPLAINT. Q 15 MINUTE SAFETY CHECKS. 1 PERSON ASSIST WITH ACTIVITIES OF DAILY LIVING, CONTINENT OF BOWEL AND BLADDER. SET UP FOR MEALS, INTAKES ARE POOR WITH MUCH ENCOURAGEMENT. INTERACTIVE WITH NURSING STAFF. WATCHED MOVIE WITH OTHER PATIENTS. AMBULATORY WITH STEADY GAIT. P: CONTINUE TO MONITOR MOOD, VOICED STATEMENT OF SUICIDAL IDEATIONS AND MONITOR MEAL INTAKES. PROVIDE ONE ON ONE FOR EMOTIONAL SUPPORT, CONTRACT FOR SAFETY WHEN FEELING SUICIDAL AND ENCOURAGE MEAL INTAKES.
--- NOTE | 2019-11-18 14:56 | NUR ---
P: TALKING TO UNSEEN OTHERS, ISOLATIVE TO ROOM, RESTLESS AND PACING BACK AND FORTH TO ROOM. I: ONE ON ONE FOR EMOTIONAL SUPPORT, REDIRECTION NEEDED. R: EFFECTIVE. PATIENT IS ALERT TO PERSON, PLACE, TIME AND SITUATION; ABLE TO VOICE NEEDS. MOOD IS LABILE, PLEASANT DEMEANOR. DENIES ANY HALLUCINATIONS, DELUSIONS, HI/SI OR PAIN. MEDICATION COMPLAINT. Q 15 MINUTE SAFETY CHECKS MAINTAINED. 1 PERSON ASSIST FOR CUEING WITH ACTIVITIES OF DAILY LIVING, CONTINENT OF BOWEL AND BLADDER, SET UP FOR MEALS, INTAKES VARY WITH MUCH ENCOURAGEMENT. INTERACTIVE WITH STAFF AND OTHER PATIENTS. PARTICIPATES IN GROUP SESSION. P: CONTINUE TO MONITOR FOR HALLUCINATIONS, DELUSIONS, MEDICATION COMPLIANCE AND MEAL INTAKE. PROVIDE ONE ON ONE FOR EMOTIONAL SUPPORT, REDIRECT, ENCOURAGE MEDICATION COMPLIANCE AND MEAL INTAKES.
--- NOTE | 2019-11-18 16:06 | NUR ---
Shift chart check completed.
[2019-11-18 20:02] VITALS: BP 110/57
--- NOTE | 2019-11-18 23:35 | NUR ---
P-DEPRESSED MOOD, PREOCCUPIED. I-PROVIDE 1:1 WITH THERAPEUTIC INTERVENTIONS. PROVIDE SUPPORT. ENCOURAGE MEDICATION COMPLIANCE AND EDUCATE. MONITOR SLEEP. R-PATIENT ALERT AND ORIENTED X3 WITH CONFUSION. PT MORE INTERACTIVE THIS HS THAN THE PREVIOUS SHIFT THIS RN WORKED. PT ATE SNACK, WATCHED A MOVIE, AND REQUESTED A SHORT TRIM. DURING 1:1 PATIENT REMAINS PREOCCUPIED WITH HIS FINANCES AND STATED "I KNOW I JUST MADE IT WORSE ON MY DAUGHTERS AND MESSED THINGS UP FOR THEM". WHEN QUESTIONED TO WHY, PATIENT STATED HE CREATED A LOT OF CREDIT CARD DEBIT FOR THEM AND HE DOESN'T KNOW HOW HIS DEPRESSION WILL EVER GET BETTER WHEN HE IS GOING TO ALWAYS FEEL BAD ABOUT DOING THAT. PT PROVIDED WITH SUPPORT AND CONTRACTED FOR SAFETY. PT ALSO NOTED TO BE PREOCCUPIED WITH RULES OF THE UNIT AND AT TIMES HAS UNDERLYING IRRITABILITY WHEN APPROACHING STAFF IN QUESTION OF THEM. PT OTHERWISE CALM, EASILY REDIRECTED NEEDED. PT DENIES SI/HI, HALLUCINATIONS, OR PAIN. PT MEDICATION COMPLIANT WITHOUT DIFFICULTY AFTER REVIEW. PT AMBULATORY WITH A STEADY GAIT, INDEPENDENT IN ADL'S, CONTINENT OF BOWEL AND BLADDER. PT CURRENTLY LAYING DOWN WITH EYES CLOSED, RESPIRATIONS EASY AND REGULAR, NO SIGNS OR SYMPTOMS OF DISTRESS NOTED. P-CONTINUE TO MONITOR MOOD AND BEHAVIORS. MAINTAIN Q 15 MIN CHECKS AND PRN FOR SAFETY.
--- NOTE | 2019-11-19 05:43 | NUR ---
PATIENT OBSERVED ON Q 15 MIN CHECKS TO HAVE SLEPT APPROX 6.5 HOURS UNINTERRUPTED. NO DISTRESS NOTED.
--- NOTE | 2019-11-19 05:51 | NUR ---
24 HOUR CHART CHECK COMPLETED.
--- NOTE | 2019-11-19 07:55 | NUR ---
Patient eating breakfast in quiet room. Respirations easy and regular. Vital signs stable. No overt distress. ARIAN KHAN PMHNP- on unit to see pt at this time, update given.
[2019-11-19 07:59] VITALS: BP 137/71
--- NOTE | 2019-11-19 08:00 | NUR ---
on unit to see pt at this time, update given. Made aware pt c/o not being able to move his bowels.
--- NOTE | 2019-11-19 09:00 | NUR ---
Treatment plan meeting was held via Telephone with Dr. Mims, JOSE A Natarajan, YOHANNES, TELEPHONE ASSEMBLER-S and Cambering Machine Operator. Plan for discharge Tuesday. Plan is for Pt. to return home.
--- NOTE | 2019-11-19 14:45 | NUR ---
Spoke with pt's daughter Ami Gamboa. Requested clarification about pt's home situation as pt continue to express concerns and add new concerns about the condition of his home. Ami stated that pt's bathtub drain is clogged, but she has a corrections unit supervisor coming to the house. Pt's stovetop is broken, but pt's oven works and he uses an electric skillet also. Ami is working with a service to clean the drain leading from pt's home in the basement to the outside. Ami again stated that she is not finding any concerns in pt's finances. When asked, Ami stated that she is wanting and believing that pt can return home. Informed Ami that a call to APS will be made when pt discharges in order to assess for additional support service that can be offered through the [facility].
--- NOTE | 2019-11-19 15:49 | NUR ---
P: PREOCCUPIED WITH FINANCIAL ISSUE AND HAVING FINANCIAL BURDEN TO HIS DAUGHTERS; DEPRESSED MOOD. I: ONE ON ONE FOR EMOTIONAL SUPPORT R: EFFECTIVE. PATIENT IS ALERT TO PERSON, PLACE, TIME AND SIUTATION, ABLE TO VOICE NEED. MOOD IS SLIGHTLY DEPRESSED. DENIES ANY HALLUCINATIONS, DELUSION, HI/SI OR PAIN. MEDICATION COMPLAINT. Q 15 MINUTE SAFETY CHECKS. 1 PERSON ASSIST WITH ACTIVITIES OF DAILY LIVING, CONTINENT OF BOWEL AND BLADDER. SET UP FOR MEALS, INTAKES ARE POOR WITH MUCH ENCOURAGEMENT. INTERACTIVE WITH NURSING STAFF AND OTHER PATIENTS. PARTICIPATED IN AFTERNOON GROUP SESSION. AMBULATORY WITH STEADY GAIT. P: CONTINUE TO MONITOR MOOD, VOICED STATEMENT OF SUICIDAL IDEATIONS AND MONITOR MEAL INTAKES. PROVIDE ONE ON ONE FOR EMOTIONAL SUPPORT, CONTRACT FOR SAFETY WHEN FEELING SUICIDAL AND ENCOURAGE MEAL INTAKES.
[2019-11-19 20:14] VITALS: BP 126/67
--- NOTE | 2019-11-20 00:05 | NUR ---
P-DEPRESSED MOOD. I-PROVIDE 1:1 WITH THERAPEUTIC INTERVENTIONS. PROVIDE SUPPORT. ENCOURAGE MEDICATION COMPLIANCE AND EDUCATE. MONITOR SLEEP. R-PATIENT ALERT AND ORIENTED X4 WITH INTERMITTENT CONFUSION. PT CALM, PLEASANT, AND INTERACTIVE THIS HS. PT SAT IN DINING ROOM AND WATCHED A MOVIE WITH PEERS, ATE HS SNACK. PT CONTINUES TO BE PREOCCUPIED WITH HIS FINANCIAL SITUATION AND STATES IT IS WHAT MAKES HIM DEPRESSED, SUPPORT OFFERED. PT DENIES SI/HI, HALLUCINATIONS OR PAIN, CONTRACTED FOR SAFETY. PT MEDICATION COMPLIANT WITH OUT DIFFICULTY AFTER REVIEW. PT SHOWERED THIS HS REQUESTED. PT AMBULATORY WITH A STEADY GAIT, INDEPENDENT IN ADL'S, CONTINENT OF BOWEL AND BLADDER. PT CURRENTLY LAYING DOWN WITH EYES CLOSED, RESPIRATIONS EASY AND REGULAR, NO SIGNS OR SYMPTOMS OF DISTRESS NOTED. P-CONTINUE TO MONITOR MOOD AND BEHAVIORS. MAINTAIN Q 15 MIN CHECKS AND PRN FOR SAFETY.
--- NOTE | 2019-11-20 05:23 | NUR ---
24 HOUR CHART CHECK COMPLETED.
--- NOTE | 2019-11-20 05:43 | NUR ---
PATIENT OBSERVED ON Q 15 MIN CHECKS TO HAVE SLEPT APPROX 7 HOURS UNINTERRUPTED. NO SIGNS OR SYMPTOMS OF DISTRESS NOTED.
[2019-11-20 08:00] VITALS: BP 143/73
--- NOTE | 2019-11-20 08:00 | NUR ---
and on unit to see pt at this time, update given. Made aware pt moving bowels daily.
--- NOTE | 2019-11-20 09:41 | NUR ---
Treatment Plan meeting was held this a.m. with Dr. Mims, JOSE A Natarajan, YOHANNES and Field Artillery Fire Control Man. Plan for discharge Tuesday. Pt. will return home.
--- NOTE | 2019-11-20 15:18 | NUR ---
Spoke with Pt. Daughter Ami via telephone. Advised of Plans to discharge tommorow. Ami will pick patient up at 4:00 p.m.
--- NOTE | 2019-11-20 15:50 | NUR ---
NO ADVERSE MOODS OR BEHAVIORS NOTED. A&O X4. STABLE MOOD. NO HALLUCINATIONS OR DELUSIONS NOTED. SEE [facility] FLOWSHEET FOR SPECIFIC MONITORING.
[2019-11-20 20:19] VITALS: BP 124/67
--- NOTE | 2019-11-20 21:51 | NUR ---
Patient alert and oriented x4. Mood calm,pleasant,cooperative but sad. Patient fixating on financial situation and how he has disappointed his daughters. Emotional support and therapeutic communication offered and patient receptive. Patient denies any hallucinations. No overt s/s of any responding to internal stimuli noted at this time. Patient compliant with HS medications without any difficulty. No adverse behaviors noted. Plan to continue to encourage medication compliance. Also continue to provide emotional support and therapeutic communication. Will continue to monitor moods/behaviors. Q 15 minute safety checks continued and maintained. See [facility] flowsheet for further documentation.
--- NOTE | 2019-11-21 00:11 | NUR ---
24 HR chart check completed.
--- NOTE | 2019-11-21 05:41 | NUR ---
Patient slept approx. 6.5 hours throughout shift. Q 15 minute safety checks continued and maintained.
[2019-11-21 07:37] VITALS: BP 116/57
--- NOTE | 2019-11-21 08:16 | NUR ---
DR. CALVERT ON UNIT TO ASSESS PATIENT AND NOTIFIED OF PATIENT BEING DISCHARGED TODAY.
[2019-11-21] MEDS ORDERED: RIVASTIGMINE TAR6 M1 PO (08:58)
[2019-11-21] MEDS ORDERED: MIRTAZAPINE15 M2 PO (08:58)
[2019-11-21] MEDS ORDERED: MEMANTINE HCL10 MG PO (08:58)
[2019-11-21] MEDS ORDERED: OLANZAPINE5 MG PO (08:58)
--- NOTE | 2019-11-21 09:00 | NUR ---
Treatment Plan meeting was held this a.m. via telephone with Dr. Mims, JOSE A Natarajan, RN, WIRELINE OPERATOR-S and Foundry Worker General in attendance. Plan for discharge today with return home. Follow up is Scheduled with [facility] 11/26/2019 11:30 a.m. Primary Care Follow up with Dr. Gandara office at [facility] in [place] 12/03/2019 1:00 p.m. Call has been placed and referral given to APS to Follow for Self Neglect due to Patient Complaints of his living conditions which were not substantiated by Daughter.
--- NOTE | 2019-11-21 12:17 | NUR ---
Orders received From Dr. Christianson for Home Health. Pt. first choice had been [facility] but they are out of Network. Second Choice is [facility]. Referral Faxed to [facility] for Nurse to follow for Diabetes Management and Education and Follow Up and New Medication Management.
--- NOTE | 2019-11-21 15:30 | NUR ---
DAUGHTER IN FRONT LOBBY READY FOR PATIENT TO BE DISCHARGED. PATIENT REFUSED TO SIGN PAPERWORK. ALL BELONGING GATHERED. PATIENT ASSISTED TO WHEELCHAIR. PATIENT ASSISTED OFF UNIT WITH BELONGING AND DISCHARGE INSTRUCTIONS TO PRIVATE VEHICLE.
--- NOTE | 2019-11-22 10:38 | NUR ---
Spoke to Yumiko at [facility]. Discharge clinical left on .
== END 2019-11-21 15:30 | disposition home or self-care (01) | DRG 885 ==
LOC: ED 12:17 → 3N 17:05
PROVIDERS: Emergency Medicine; ADMIT Psychiatry & Neurology Psychiatry
DX: F33.2 Major depressive disorder, recurrent severe without psychotic features (principal); E87.1 Hypo-osmolality and hyponatremia; E44.1 Mild protein-calorie malnutrition; G30.9 Alzheimer's disease, unspecified; E11.65 Type 2 diabetes mellitus with hyperglycemia; F02.80 Dementia in other diseases classified elsewhere, unspecified severity, without behavioral disturbance, psychotic disturbance, mood disturbance, and anxiety; E83.41 Hypermagnesemia; E86.0 Dehydration; R81 Glycosuria; I10 Essential (primary) hypertension; K21.9 Gastro-esophageal reflux disease without esophagitis; M19.90 Unspecified osteoarthritis, unspecified site; E78.5 Hyperlipidemia, unspecified; E80.6 Other disorders of bilirubin metabolism; H91.13 Presbycusis, bilateral; Z68.30 Body mass index [BMI] 30.0-30.9, adult; Z79.4 Long term (current) use of insulin; Z79.899 Other long term (current) drug therapy

== ENCOUNTER → 2019-11-30 | Outpatient (CLI) | payer MEDICARE ==
[~2019-11-30] MED LIST changes: +24 HOUR ALLER15.8 ML NAS; +ESCITALOPRAM OX10 MG PO; +MEMANTINE HCL10 MG PO; +MIRTAZAPINE15 M2 PO; +OLANZAPINE5 MG PO; +RIVASTIGMINE TAR6 M1 PO; +TRULICITY0.75 MG/0. SC; +ZESTORETIC 10-1 EACH PO
== END | disposition home or self-care (01) ==
LOC: RESCLI 05:15
DX: E11.65 Type 2 diabetes mellitus with hyperglycemia (principal); I10 Essential (primary) hypertension; E78.2 Mixed hyperlipidemia; K59.00 Constipation, unspecified; E55.9 Vitamin D deficiency, unspecified; R79.89 Other specified abnormal findings of blood chemistry; R63.4 Abnormal weight loss; Z79.4 Long term (current) use of insulin; Z79.899 Other long term (current) drug therapy; Z88.8 Allergy status to other drugs, medicaments and biological substances

== ENCOUNTER → 2020-03-13 | Outpatient (CLI) | payer MEDICARE | END | disposition home or self-care (01) | LOC: RESCLI 01:24 | PROVIDERS: ATTEND Social Worker Clinical | DX: E11.65 Type 2 diabetes mellitus with hyperglycemia (principal); J30.2 Other seasonal allergic rhinitis; I10 Essential (primary) hypertension; G62.9 Polyneuropathy, unspecified; E55.9 Vitamin D deficiency, unspecified; F41.9 Anxiety disorder, unspecified; E78.5 Hyperlipidemia, unspecified; F32.9 Major depressive disorder, single episode, unspecified; D69.6 Thrombocytopenia, unspecified; H90.5 Unspecified sensorineural hearing loss; K21.9 Gastro-esophageal reflux disease without esophagitis; K59.00 Constipation, unspecified; E03.9 Hypothyroidism, unspecified; I51.7 Cardiomegaly; Z79.4 Long term (current) use of insulin; Z86.2 Personal history of diseases of the blood and blood-forming organs and certain disorders involving the immune mechanism; Z79.899 Other long term (current) drug therapy; Z98.890 Other specified postprocedural states ==

== ENCOUNTER → 2020-05-23 | Outpatient (CLI) | payer MEDICARE ==
[~2020-05-23] MED LIST changes: +MIRTAZAPINE30 M2 PO; +OLANZAPINE10 MG PO
[2020-05-23 16:33] LABS: BUN 20 mg/dl (7-24); CHLORIDE 104 mmol/L (98-107); CREATININE 0.96 mg/dL (0.70-1.30); POTASSIUM 4.2 mmol/L (3.5-5.1); SODIUM 140 mmol/L (136-145)
== END | disposition home or self-care (01) ==
LOC: RESCLI 00:40
PROVIDERS: Student in an Organized Health Care Education/Training Program; ATTEND Family Medicine
DX: E11.65 Type 2 diabetes mellitus with hyperglycemia (principal); G62.9 Polyneuropathy, unspecified; E55.9 Vitamin D deficiency, unspecified; F41.9 Anxiety disorder, unspecified; E78.5 Hyperlipidemia, unspecified; F32.9 Major depressive disorder, single episode, unspecified; D69.6 Thrombocytopenia, unspecified; H90.5 Unspecified sensorineural hearing loss; K21.9 Gastro-esophageal reflux disease without esophagitis; K59.00 Constipation, unspecified; E03.9 Hypothyroidism, unspecified; E66.9 Obesity, unspecified; I51.7 Cardiomegaly; E11.9 Type 2 diabetes mellitus without complications; J30.2 Other seasonal allergic rhinitis; I10 Essential (primary) hypertension; E78.2 Mixed hyperlipidemia; R39.11 Hesitancy of micturition; Z79.4 Long term (current) use of insulin; Z86.2 Personal history of diseases of the blood and blood-forming organs and certain disorders involving the immune mechanism; Z91.09 Other allergy status, other than to drugs and biological substances; Z79.899 Other long term (current) drug therapy; Z98.890 Other specified postprocedural states; Z91.030 Bee allergy status

== ENCOUNTER 2020-06-09 16:52 | Inpatient (IN) | payer MEDICARE ==
[~2020-06-09] VITALS: Ht 177.8 cm; Wt 84.9 kg
[~2020-06-09 16:52] MED LIST changes: -MIRTAZAPINE30 M2 PO; -OLANZAPINE10 MG PO
[2020-06-09 17:03] VITALS: BP 141/67
[2020-06-09 18:34] LABS: BASO % 0.1 % (0.0-1.0); EOS % 0.3 % (1.0-4.0); HEMATOCRIT 39.5 % (42.0-52.0); LYMPH # 1.4 10*3/uL (1.3-4.4); LYMPH % 15.6 % (27.0-41.0); MEAN CELL VOLUME 96.3 fl (80.0-94.0); MEAN CORPUSCULAR HGB 31.5 pg (27.0-31.0); MEAN CORPUSCULAR HGB CONC 32.7 g/dl (33.0-37.0); MEAN PLATELET VOLUME 9.5 fl (9.6-12.3); MONO # 0.7 10*3/uL (0.1-1.0); NEUT % 75.6 % (47.0-73.0); PLATELET COUNT AUTOMATED 181 10*3/uL (130-400); RED CELL DISTRI WIDTH 13.2 % (0-14.5); WHITE BLOOD COUNT 9.3 10*3/uL (4.8-10.8)
[2020-06-09 18:48] LABS: ACT PARTIAL THROMBO TIME 23.6 SECONDS (20.0-32.1)
[2020-06-09 18:56] LABS: ALBUMIN 3.1 gm/dl (3.1-4.5); ALKALINE PHOSPHATASE 52 U/L (45-117); BUN 27 mg/dl (7-24); CHLORIDE 106 mmol/L (98-107); CREATININE 0.96 mg/dL (0.70-1.30); POTASSIUM 4.4 mmol/L (3.5-5.1); SGOT/AST 543 IU/L (3-35); SGPT/ALT 106 U/L (12-78); SODIUM 138 mmol/L (136-145); TOTAL PROTEIN 6.6 gm/dL (6.4-8.2)
[2020-06-09 19:01] LABS: CKMB 28.4 ng/ml (0.5-3.6)
[2020-06-09 19:30] LABS: CPK 11691 U/L (39-308)
--- NOTE | 2020-06-09 20:00 | NUR ---
STRAIGHT CATHED PATIENT AT THIS TIME. PATIENT INCONTINENT OF URINE AT THIS TIME.
[2020-06-09 20:25] LABS: BILIRUBIN Negative (Negative); BLOOD Trace-Lysed (Negative); CLARITY Clear (Clear); COLOR Yellow (Yellow); GLUCOSE 2+ (Negative); KETONE Negative (Negative); LEUKO ESTERASE Negative (Negative); NITRITE Negative (Negative); PH 6.5 (4.5-8.0)
[2020-06-09 20:43] LABS: RBC 0-2 rbc/hpf (0-2); WBC 0-2 wbc/hpf (0-5)
--- NOTE | 2020-06-09 22:15 | NUR ---
PATIENT YELLING OUT AT THIS TIME. RN IN TO CHECK PATIENT. PATIENT REQUESTING FOOD AND DRINK AT THIS TIME. PATIENT TO HAVE4 BARRIUM SWALLOW DONE TOMORROW, THIS RN DOES NOT FEEL COMFORTABLE FEEDING OR PROVIDING DRINK TO PATIENT AT THIS TIME DUE TO RISK FOR ASPIRATION. RN PROVIDED PATIENT WITH MOUTH SWAB AT THIS TIME. RN WILL CONTINUE TO MONITOR.
--- NOTE | 2020-06-09 22:30 | NUR ---
PATIENT YELLING OUT AT THIS TIME. RN SPOKE WITH PATIENT AGAIN REGARDING HIM YELLING OUT. REINFORCED CALL LIGHT WITHIN PATIENT, SHOWING HIM WHERE IT IS LOCATED IF HE NEEDS IT. PATIENT VERBALIZES UNDERSTANDING AT THIS TIME. RN WILL CONTINUE TO MONITOR.
--- NOTE | 2020-06-10 00:01 | NUR ---
PROVIDED INCONTINENT CARE TO PATIENT AT THIS TIME. RESPIRATIONS EASY, NON-LABORED ON ROOM AIR. CALL LIGHT WITHIN REACH. SIDERAILS X2. RN WILL CONTINUE TO MONITOR.
[2020-06-10 00:30] VITALS: BP 152/84
[2020-06-10 00:35] VITALS: BP 152/84
--- NOTE | 2020-06-10 01:09 | NUR ---
SPOKE WITH DR CARPIO AT THIS TIME REGARDING PATIENTS BLOOD SUGAR. PER DR CARPIO, OK TO GIVE ANOTHER AMP AND HOLD NORMAL SALINE WHILE STARTING D5 AT 125ML/HR. PATIENT AWAKE, ALERT, TALKING AT THIS TIME. DENIES ANY NEEDS. RESPIRATIONS EASY, NON-LABORED ON ROOM AIR. CALL LIGHT WITHIN REACH. SIDERAILS X2. RN WILL CONTINUE TO MONITOR.
--- NOTE | 2020-06-10 02:06 | NUR ---
DR CARPIO ON UNIT. PER DR CARPIO, HOLD D5W AND CONTINUE NS AT 125ML/HR AND IF PATIENT NEEDS COVERAGE OK TO GIVE ANOTHER AMP. RN REMINDED THAT PATIENT HAS HAD 2 AMPS TOTAL THUS FAR.
--- NOTE | 2020-06-10 04:40 | NUR ---
SPOKE WITH DR CARPIO AT THIS TIME REGARDING PATIENTS BGL OF 65. DR CARPIO TO ORDER D5 1/2NS AT THIS TIME.
[2020-06-10 06:08] VITALS: BP 140/86
[2020-06-10 06:15] LABS: ALBUMIN 2.9 gm/dl (3.1-4.5); CHLORIDE 110 mmol/L (98-107); CREATININE 0.74 mg/dL (0.70-1.30); SGOT/AST 451 IU/L (3-35); SGPT/ALT 93 U/L (12-78); SODIUM 142 mmol/L (136-145)
[2020-06-10 06:17] LABS: ALKALINE PHOSPHATASE 51 U/L (45-117); TOTAL PROTEIN 6.2 gm/dL (6.4-8.2)
[2020-06-10 06:20] LABS: BASO % 0.3 % (0.0-1.0); EOS # 0.1 10*3/uL (0.0-0.4); EOS % 1.3 % (1.0-4.0); HEMATOCRIT 40.3 % (42.0-52.0); LYMPH # 1.6 10*3/uL (1.3-4.4); LYMPH % 22.6 % (27.0-41.0); MEAN CELL VOLUME 98.1 fl (80.0-94.0); MEAN CORPUSCULAR HGB 31.9 pg (27.0-31.0); MEAN CORPUSCULAR HGB CONC 32.5 g/dl (33.0-37.0); MEAN PLATELET VOLUME 10.2 fl (9.6-12.3); MONO # 0.6 10*3/uL (0.1-1.0); MONO % 8.1 % (3.0-9.0); NEUT # 4.6 10*3/uL (2.3-7.9); NEUT % 67.4 % (47.0-73.0); PLATELET COUNT AUTOMATED 182 10*3/uL (130-400); RED BLOOD COUNT 4.11 10*6/uL (4.50-5.90); RED CELL DISTRI WIDTH 13.2 % (0-14.5); WHITE BLOOD COUNT 6.9 10*3/uL (4.8-10.8)
[2020-06-10 06:21] LABS: BUN 16 mg/dl (7-24)
--- NOTE | 2020-06-10 07:00 | NUR ---
REPORT FROM JOCELYN SHEFFIELD.
[2020-06-10 07:40] VITALS: BP 145/88
--- NOTE | 2020-06-10 08:03 | NUR ---
PATIENT RESTING IN BED. RR EASY AND NON-LABORED. CALL LIGHT WITHIN REACH. GAVE PATIENT SOME MOUTH SWABS TO RINSE MOUTH OUT. PATIENT APPEARS TO BE IN NO DISTRESS AT THIS TIME.
--- NOTE | 2020-06-10 09:27 | NUR ---
CLEANED PATIENT UP, APPLIED NEW BRIEF, NEW GOWN AND NEW SHEETS TO BED.
[2020-06-10 10:16] VITALS: BP 144/84
--- NOTE | 2020-06-10 10:16 | NUR ---
INSERTED INDEWELLING URINARY CATHETER AT THIS TIME D/T INCONTINENCE
--- NOTE | 2020-06-10 11:27 | NUR ---
SPEECH THERAPY CALLED AND NOTIFED THIS RN THAT PATIENT TOLERATED BARIUM SWALLOW WELL WITH SOLIDS AND LIQUIDS.
--- NOTE | 2020-06-10 11:39 | NUR ---
NOTIFIED RESIDENT TIP OF BARIUM SWALLOW GOING WELL. ORDERED PATIENT A REGULAR DIET PER DR. WHELAN.
--- NOTE | 2020-06-10 11:46 | NUR ---
SPEECH THERAPY Patient referred for MBS due to concerns for dysphagia. Patient presents to ED with change in mental status. He resides at home independently where his daughter discovered him with increased confusion and difficulty swallowing. He has PMHx s/f dementia. Per chart review, patient had liquids "running out of his mouth" with additional reported deficits in swallowing solids. Recent CAT scan of head and CXR were unremarkale. Oral mech exam revealed slow lingual and labial movements with reduced lingual, and labial strength and ROM. He demonstrated some impairment in following verbal commands with cues however hearing was also a noted deficit. Patient produced a functional volitional swallow and cough. He was administered a variety of substances with some clinician assistance required for feeding. Patient consumed barium coated appelsauce, banana, and cookie with sips of nectar-like and thin liquid barium via straw. Slight increase in mastication time required during trial of coarse solid cookie, however he displayed safety and tolerance of solid food items. He took consecutive sips of nectar and thin liquid by cup. Transient penetration that cleared the laryngeal vestibule was observed on one trial of consecutive sips of thin liquid. He followed verbal cue to reduce sip size to consume one single sip with no penetration/aspiration noted. Patient recommended to remain on current diet as he demonstrates safety and tolerance of a regular consistency with thin liquids. No speech therapy recommended at this time due to safety/tolerance of least restrictive diet. Full dictated report to follow. Thank you for your consultation. Mya Rubin MA CCC-COUNTERINTELLIGENCE SPECIALIST
--- NOTE | 2020-06-10 12:38 | NUR ---
GAVE PATIENT LUNCH TRAY AT THIS TIME
--- NOTE | 2020-06-10 13:28 | NUR ---
Final Inspector And Tester in to talk to patient. Patient states lives at HOME with ALONE. There are FEW steps in the home. Physician: [facility] Pharmacy: [facility] Home health services: NONE Patient's level of ADLs: MINIMAL ASSIST Patient has working utilities: YES DME: NONE Follow-up physician's appointment after d/c: WILL BE MADE BY RN HOSPITALIST COORDINATOR AT DISCHARGE Does patient want to access PORTAL?: NO Discharge plan : TELESALES SPECIALIST CONTACTED PATIENTS JOSÉ PUENTE VIA PHONE CALL. PER DAUGHTER PATIENT DOES RESIDE AT HOME ALONE WITH HER CHECKING IN ON HIM DAILY. SHE STATED THAT SHE HAS NOTICE A DECLINE IN THE PATIENT RECENTLY. SHE STATED THAT PRIOR TO SEPTEMBER PATIENT WAS INDEPENDENT AND DRIVING TO [facility] [employer] ALONE FOR APPOINTMENT. PATIENT STOPPED DRIVING IN SEPTEMBER. THIS PATIENT DOES NOT USE ANY DME AT HOME. PER KWAME THE PATIENT FIXES HIS OWN BREAKFAST AND LUNCH. SHE PROVIDES HIM WITH DINNER. SHE VISITS WITH THE PATIENT AROUND 3PM AND 7PM DAILY. THIS PATIENT IS CURRENTLY CONFUSED. KWAME IS AGREEABLE FOR SNF PLACEMENT. WHEN GIVEN A VERBAL LIST SHE CHOOSE 1. [facility] 2.[facility] 3.[facility]. TELESALES SPECIALIST FAXED DEMOGRAPHICS TO [facility]. WILL NEED COVID RESULTS AND PT/OT EVALS TO COMPLETE A REFERRAL. LEONORA NORTON
--- NOTE | 2020-06-10 14:22 | NUR ---
[facility] IS OUT OF NETWORK FOR THIS PATIENT. SOIL CHECKER WILL FAX REFERRAL TO [facility] FOR REVIEW.
--- NOTE | 2020-06-10 14:40 | NUR ---
PATIENT RESTING IN BED, EATING AT THIS TIME WITH NOEL'S ASSITANCE. RR EASY AND NON-LABORED. CALL LIGHT WITHIN REACH. APPEARS TO BE IN NO DISTRESS AT THIS TIME.
[2020-06-10 14:41] VITALS: BP 158/85
--- NOTE | 2020-06-10 15:00 | NUR ---
PATIENT SPOKE WITH DAUGHTER ON TELEPHONE.
--- NOTE | 2020-06-10 15:08 | NUR ---
Occupational Therapy evaluation completed on ED Hold with full evaluation to follow. Recommend occupational therapy per plan of care and SNF upon discharge. Thank you for this referral. Ginger Jones OTR/L
--- NOTE | 2020-06-10 15:37 | NUR ---
PHYSICAL THERAPY Physical therapy evaluation completed. Full details and evaluation to follow. Moderate complexity skilled PT evaluation performed [id number]. PT will work on strength, bed mobility, transfers, gait, AD usgae, balance and safety per POC. Recommend SNF at discharge. Mónica Mensah PT DPT
--- NOTE | 2020-06-10 16:16 | NUR ---
CALLED [facility] TO FAX MEDICATION LIST ON PATIENT.
--- NOTE | 2020-06-10 16:30 | NUR ---
NO HUMALOG AVAILABLE IN ER AT THIS TIME. PHARMACY NOTIFIED.
[2020-06-10] MEDS ORDERED: MIRTAZAPINE30 M2 PO (16:55)
[2020-06-10] MEDS ORDERED: OLANZAPINE10 MG PO (16:56)
--- NOTE | 2020-06-10 18:49 | NUR ---
OUTPUT 1650ML.
--- NOTE | 2020-06-10 20:30 | NUR ---
PT RESTING IN BED WITH EYES OPEN, NO ACUTE DISTRESS NOTED UPON THIS RN EXITING THE ROOM, CALL LIGHT WITHIN REACH
--- NOTE | 2020-06-10 21:39 | NUR ---
PT RESTING IN BED WITH EYES CLOSED, CALL LIGHT WITHIN REACH, NO ACUTE DISTRESS NOTED UPON THIS RN EXITING THE ROOM
--- NOTE | 2020-06-10 23:57 | NUR ---
PT RESTING IN BED WITH EYES OPEN, CALL LIGHT WITHIN REACH, NO ACUTE DISTRESS NOTED UPON THIS RN EXITING THE ROOM
[2020-06-11 00:25] VITALS: BP 132/80
--- NOTE | 2020-06-11 03:53 | NUR ---
PT RESTING IN BED WITH EYES CLOSED, CALL LIGHT WITHIN REACH, NO ACUTE DISTRESS NOTED UPON THIS RN EXITING THE ROOM
--- NOTE | 2020-06-11 05:49 | NUR ---
PT RESTING IN BED WITH EYES OPEN, CALL LIGHT WITHIN REACH NO ACUTE DISTRESS NOTED UPON THIS RN EXITING THE ROOM
[2020-06-11 06:09] LABS: BUN 13 mg/dl (7-24); CHLORIDE 106 mmol/L (98-107); SODIUM 137 mmol/L (136-145)
[2020-06-11 06:22] LABS: BASO % 0.1 % (0.0-1.0); EOS # 0.1 10*3/uL (0.0-0.4); EOS % 1.6 % (1.0-4.0); HEMATOCRIT 40.2 % (42.0-52.0); LYMPH # 1.6 10*3/uL (1.3-4.4); LYMPH % 24.1 % (27.0-41.0); MEAN CELL VOLUME 97.8 fl (80.0-94.0); MEAN CORPUSCULAR HGB 31.1 pg (27.0-31.0); MEAN CORPUSCULAR HGB CONC 31.8 g/dl (33.0-37.0); MEAN PLATELET VOLUME 10.3 fl (9.6-12.3); MONO # 0.6 10*3/uL (0.1-1.0); MONO % 9.1 % (3.0-9.0); NEUT # 4.4 10*3/uL (2.3-7.9); PLATELET COUNT AUTOMATED 184 10*3/uL (130-400); RED BLOOD COUNT 4.11 10*6/uL (4.50-5.90); RED CELL DISTRI WIDTH 13.2 % (0-14.5); WHITE BLOOD COUNT 6.7 10*3/uL (4.8-10.8)
[2020-06-11 06:25] LABS: CREATININE 0.88 mg/dL (0.70-1.30)
[2020-06-11 06:26] LABS: CPK 2749 U/L (39-308)
--- NOTE | 2020-06-11 07:45 | NUR ---
PT IN WITH PT, PT OUT OF BED, DID SOME EXERCISES, TOLERATED WELL WITH NO DIZZYNESS PER PT.
--- NOTE | 2020-06-11 07:45 | NUR ---
PHYSICAL THERAPY Patient seen this am 1;1 for therapy visit and was resting supine in bed upon therapist arrival. Patient identified by name / and joined by OT bindery assistant for observation only this session. Patient reports no c/o's pain at this time and recorded resting SpO2 95%, HR 86 bpm prior to transfering supine to sit EOB with MIN A. Patient tolerated several minutes static EOB sit, SBA, then completed several sit to stand transfers, CATHODE BUILDER/CGA, voicing no c/o's of dizziness this session. Patient able to side step each direction, including 2-3 fwd/bkwd steps without LOB. Patient does fatigue quickly and needed brief seated rest break between standing trials. Patient became a little "grumpy" repeatedly stating he was waiting on his breakfast and needed v/c to remain focus on task in completing all therapy. Patient returned to supine in bed and remained with call light and tray table in ED room under ED Nursing Supervision. Will continue per POC as tolerated, total treatment time 16 minutes. Jeffrey Vazquez, SENIOR COUNSEL
--- NOTE | 2020-06-11 08:00 | NUR ---
OT NOTE Pt was seen this A.M. 1:1 for 20 minute OT session. Upon arrival pt was supine in bed. Pt identified by name and and had no complaints at this time. Pt's resting heart rate 86 bpm and SpO2 95% on room air. Pt transferred supine to sit EOB with Ami for assist with upper body. Pt completed multiple sit to stand transfers from bed level with CGA hand held. Challenged pt's static standing tolerance needed for increased I in self care tasks and functional transfers. pt was able to tolerate aprox 60 seconds before sitting due to fatigue. Pt was unwilling to complete dynamic standing balance activity. While sitting EOB pt completed AROM to BUE's over all planes for 1 X 10 to increase and restore maximum functional use. Pt then transferred back into bed sit to supine with Ami for assist with BLE's. Pt was left supine in bed with call light in hand, tray table in place, and ED nurse notified. Continue with rec D/C plan to SNF. GAURAV Martin
[2020-06-11 08:11] VITALS: BP 130/92
--- NOTE | 2020-06-11 08:50 | NUR ---
DAUGHTER LORY SHETH,
--- NOTE | 2020-06-11 09:31 | NUR ---
BREAKFAST TRAY PROVIDED.
[2020-06-11 11:41] VITALS: BP 128/80
--- NOTE | 2020-06-11 12:34 | NUR ---
AWAITING ACCEPTANCE FROM [facility]. CLINICAL AUDITOR COMPLETED HENS.
--- NOTE | 2020-06-11 13:31 | NUR ---
PATIENT HAS BEEN ACCEPTED TO [facility]. PRECERT HAS BEEN REQUESTED TO BE STARTED. COVID RESULTS WILL NEED TO BE RETURNED.
--- NOTE | 2020-06-11 15:07 | NUR ---
PRECERT HAS BEEN OBTAINED. COVID RESULT IS NEEDED BEFORE ADMISSION TO FACILITY.
--- NOTE | 2020-06-11 15:11 | NUR ---
PER CASE MANAGEMENT PT MAY BE DISCHARGED BACK TO [facility] IF COVID IS NEGATIVE.
--- NOTE | 2020-06-11 15:15 | NUR ---
PRECERT HAS BEEN OBTAINED. PATIENT CAN ADMIT TO [facility] ONCE COVID RESULTS ARE BACK. PER [facility] PLAN TO ADMIT WILL BE TOMORROW.
[2020-06-11 16:25] VITALS: BP 132/82
--- NOTE | 2020-06-11 16:25 | NUR ---
RESTING IN BED, EYES CLOSED, NO DISTRESS.
--- NOTE | 2020-06-11 17:00 | NUR ---
PT EATING DINNER TRAY.
--- NOTE | 2020-06-11 17:33 | NUR ---
PHYSICAL THERAPY CO-SIGN I approve of the Physical Therapy notes written above. APPLE HART PT, DPT
--- NOTE | 2020-06-11 18:53 | NUR ---
2000 CC LAVELL COLORED URINE EMPTIED FROM PLEITEZ.
--- NOTE | 2020-06-11 19:33 | NUR ---
PT RESTING IN BED WITH EYES CLOSED, NO ACUTE DISTRESS NOTED UPON THIS RN EXITING THE ROOM
--- NOTE | 2020-06-11 21:09 | NUR ---
PT DAUGHTER CALLED FOR UPDATE, THIS RN PROVIDED UPDATE PER PT APPROVAL
--- NOTE | 2020-06-11 22:54 | NUR ---
PT RESTING IN BED WITH EYES OPEN, NO ACUTE DISTRESS NOTED UPON THIS RN EXITING THE ROOM, CALL LIGHT WITHIN REACH
--- NOTE | 2020-06-11 22:57 | NUR ---
PT DAUGHTER KWAME CALLED AND SAID SHE WILL PROVIDE A MED LIST TOMORROW AROUND 11AM FOR PT KWAME [phone]
--- NOTE | 2020-06-11 23:36 | NUR ---
PT PROVIDED FRESH ICE WATER AND BOXED LUNCH, PT SITTING UPRIGHT IN BED EATING BOXED LUNCH NO ACUTE DISTRESS NOTED CALL LIGHT WITHIN IN REACH
--- NOTE | 2020-06-12 00:44 | NUR ---
PT RESTING IN BED WITH EYES CLOSED, CALL LIGHT WITHIN REACH, NO ACUTE DISTRESS NOTED UPON THIS RN EXITING THE ROOM
--- NOTE | 2020-06-12 02:08 | NUR ---
PT RESTING IN BED WITH EYES OPEN, CALL LIGHT WITHIN REACH, NO ACUTE DISTRESS NOTED UPON THIS RN EXITING THE ROOM
[2020-06-12 02:50] VITALS: BP 133/78
--- NOTE | 2020-06-12 02:50 | NUR ---
A 89, admitted to , under the services of MATT Hou DO with a diagnosis of DIMENTIA,FAILURE TO THRIVE,DEHYDRATION. Chief complaint is RECENT FALL,CONFUSION. Patient arrived via stretcher from ER. Monitor applied. Initial assessment completed. Vital signs taken and recorded. [facility]TT HOU DO notified of admission to the unit. Orders received. See assessment for past medical history, medications and allergies. Patient and/or family oriented to unit. [address] visitation policy reviewed. Clothing/patient valuable form completed. AMOL PARRA
--- NOTE | 2020-06-12 03:21 | NUR ---
MED REC COMPLETED PARTIALLY WITH LIST FROM [facility]. SOME MEDICATIONS MISSING. PATIENT STATES HIS DAUGHTER HANDLES HIS MEDICATIONS AND HE DOES NOT KNOW THEM OR HAVE A LIST FROM HOME.
[2020-06-12 06:46] LABS: BUN 14 mg/dl (7-24); CHLORIDE 105 mmol/L (98-107); CREATININE 0.85 mg/dL (0.70-1.30); POTASSIUM 3.8 mmol/L (3.5-5.1); SODIUM 137 mmol/L (136-145)
--- NOTE | 2020-06-12 06:55 | NUR ---
PT RESTING IN BED. [id number], SEE EMAR. NO COVERAGE GIVEN AT THIS TIME. CALL LIGHT IN REACH. BED ALARM ON.
[2020-06-12 07:03] LABS: CPK 1185 U/L (39-308)
[2020-06-12 08:00] VITALS: BP 126/75
--- NOTE | 2020-06-12 08:30 | NUR ---
Patient resting quietly with no c/o discomfort. Respirations easy and regular. Isolation precautions maintained. Vital signs stable. No overt distress. JOSEF CASE R
--- NOTE | 2020-06-12 09:07 | NUR ---
PATIENTS IS COVID +. CUT OUT AND MARKING MACHINE OPERATOR IS CHECKING WITH [facility] TO SEE IF THEY ARE STILL ABLE TO ACCEPT.
--- NOTE | 2020-06-12 10:45 | NUR ---
SPEECH PATHOLOGY Nursing screen complete. This FIELD RESEARCH ASSOCIATE spoke with RN, Nicole, regarding reasoning for speech consult as pt swallow was recently shown to be WNL per [facility]BS on 06/10. Nicole stated she was unaware of any reasoning for speech screen and had not gotten a report of any s/s of dysphagia with meals. No ST eval warranted at this time; however, this department is available for re-consult should pt status change. Thank you. CEDRIC WHITING M.A. [facility]-FIELD RESEARCH ASSOCIATE
--- NOTE | 2020-06-12 11:01 | NUR ---
[facility] IS STILL ACCEPTING THIS PATIENT. PRESCHOOL SUBSTITUTE TEACHER NOTIFIED RN HOSPITALIST COORDINATOR JULES.
--- NOTE | 2020-06-12 11:16 | NUR ---
COST AND SALES RECORD SUPERVISOR CONTACTED PATIENTS DAUGHTER KWAME. SHE IS NOW AWARE PATIENT IS COVID +. SHE IS OKAY WITH THE PATIENT GOING TO [facility] TODAY. SHE DOES HAVE AN UPDATE MED LIST TO PROVIDE TO PATIENTS RN. COST AND SALES RECORD SUPERVISOR TRANSFERED THE CALL TO YOHANNES SAMUEL.
[2020-06-12 12:00] VITALS: BP 114/74
--- NOTE | 2020-06-12 12:30 | NUR ---
PHYSICAL THERAPY Patient seen this pm 1:1 for therapy visit and was relaxing supine in bed upon therapist arrival. Patient identified by name / and joined by OT administrative assistant coordinator for observation this session. Patient is in COVID 19 ISOLATION precautions and presented with bouts of increased confusion, requiring multiple v/c's to complete all therapy task. Patient reports no c/o's pain, transfers supine to sit EOB with MOD A x 1, tolerating several minutes static EOB sit to collect himself. Patient completed several sit to stand transfers from low bed surface, use of wh walker standing support, MIN A, tolerating < 1 minute static stand each trial. Patient ambulates ad vinay in room, CGA, wh walker, demonstrating very slow, cautious gait pattern, 10'x 1 around bed, then additional 20' x 1. Patient demonstrated LOB x 1 during 180 degree turn around, including POOR walker safety / navigation by bumping into the wall / furniture several times in room. Patient returned to supine in bed with quick onset of fatigue and remained with call light, tray table, telephone, bed alarm for safety. Will continue per POC as tolerated, total treatment time 18 minutes. Jeffrey Vazquez, INCLUSION MANAGER
--- NOTE | 2020-06-12 12:37 | NUR ---
OT NOTE Pt was seen this P.M. 1:1 for 15 minute OT session. Upon arrival pt was supine in bed. Pt identified by name and and had complaints of fatigue and generalized weakness. Pt transferred supine to sit EOB with modA for assist with upper body. Sit to stand completed from bed level with minAX2 and use of w/w for UE support. Challenged pt's static standing tolerance needed for increased I in self care tasks and functional transfers. Pt was able to tolerate aprox 2-3 minutes at a time before sitting due to fatigue. After a seated rest break pt completed functional mobility to the bathroom and back with CGA and use of w/w. Pt presented with bouts of unsteady stance due to being impulsive requiring Ami to correct. Challenged pt's dynamic standing balance while weight shifting, crossing midline, and reaching over all planes. Pt was able to maintain F- standing balance throughout requiring UE support. Pt transferred back into bed sit to supine with modA. There he was left with call light in hand, tray table in place, and bed alarm activated for safety. Throughout entire session airborne precautions were maintained. Continue with rec d/C plan to SNF. ANGIE Martin/Gabby
--- NOTE | 2020-06-12 15:30 | NUR ---
celis removed per orders.
--- NOTE | 2020-06-12 16:10 | NUR ---
REPORT CALLED TO JOHN AT [facility].
--- NOTE | 2020-06-12 16:12 | NUR ---
pt incontient for large amt of urine.
--- NOTE | 2020-06-12 16:13 | NUR ---
Discharge instructions reviewed with patient/family. Patient receptive and verbalizes understanding. Follow-up care arranged. Written instructions given to patient/family. JOSEF CASE
--- NOTE | 2020-06-16 07:33 | NUR ---
PHYSICAL THERAPY CO-SIGN I approve of the Physical Therapy notes written above. APPLE HART PT, DPT
--- NOTE | 2020-06-16 07:46 | NUR ---
OCCUPATIONAL THERAPY CO-SIGN I approve of the Occupational Therapy notes written above. ALCIDES FELIX, OTR/L
== END 2020-06-12 16:13 | disposition other institution (70) | DRG 177 ==
LOC: ED 16:52 → EDHOLD 20:36 → 4E 06-12 02:29
PROVIDERS: Hospitalist; Internal Medicine; Nurse Practitioner; Student in an Organized Health Care Education/Training Program; ADMIT Family Medicine; ATTEND Family Medicine
PROC: BD1BYZZ Fluoroscopy of Mouth/Oropharynx using Other Contrast (ICD-10-PCS; principal; 2020-06-10)
DX: U07.1 COVID-19 (principal); G93.41 Metabolic encephalopathy; M62.82 Rhabdomyolysis; E44.1 Mild protein-calorie malnutrition; H10.33 Unspecified acute conjunctivitis, bilateral; F03.90 Unspecified dementia, unspecified severity, without behavioral disturbance, psychotic disturbance, mood disturbance, and anxiety; E11.65 Type 2 diabetes mellitus with hyperglycemia; R62.7 Adult failure to thrive; E86.0 Dehydration; R74.01 Elevation of levels of liver transaminase levels; R13.10 Dysphagia, unspecified; I10 Essential (primary) hypertension; D53.9 Nutritional anemia, unspecified; Z79.4 Long term (current) use of insulin; Z68.28 Body mass index [BMI] 28.0-28.9, adult

== ENCOUNTER 2020-07-21 19:29 | Observation (INO) | payer MEDICARE ==
[~2020-07-21] VITALS: Ht 182.8 cm; Wt 82.4 kg
[~2020-07-21 19:29] MED LIST changes: +MIRTAZAPINE30 M2 PO; +OLANZAPINE10 MG PO
[2020-07-21 19:36] VITALS: BP 127/77
[2020-07-21 20:22] LABS: ALBUMIN 3.5 gm/dl (3.1-4.5); ALKALINE PHOSPHATASE 64 U/L (45-117); BASO % 0.2 % (0.0-1.0); BUN 16 mg/dl (7-24); CHLORIDE 95 mmol/L (98-107); CREATININE 1.16 mg/dL (0.70-1.30); EOS # 0.1 10*3/uL (0.0-0.4); EOS % 0.9 % (1.0-4.0); HEMATOCRIT 36.1 % (42.0-52.0); LYMPH # 0.9 10*3/uL (1.3-4.4); LYMPH % 8.7 % (27.0-41.0); MEAN CORPUSCULAR HGB 31.5 pg (27.0-31.0); MEAN CORPUSCULAR HGB CONC 34.9 g/dl (33.0-37.0); MEAN PLATELET VOLUME 9.9 fl (9.6-12.3); MONO # 0.7 10*3/uL (0.1-1.0); MONO % 6.6 % (3.0-9.0); NEUT # 8.3 10*3/uL (2.3-7.9); NEUT % 83.2 % (47.0-73.0); PLATELET COUNT AUTOMATED 230 10*3/uL (130-400); RED CELL DISTRI WIDTH 12.6 % (0-14.5); SGOT/AST 38 IU/L (3-35); SGPT/ALT 31 U/L (12-78); SODIUM 129 mmol/L (136-145); TOTAL PROTEIN 7.1 gm/dL (6.4-8.2)
[2020-07-21 20:30] LABS: MEAN CELL VOLUME 90.3 fl (80.0-94.0); TROPONIN I < 0.015 ng/ml (<0.045)
[2020-07-21 20:41] LABS: INTERNATIONAL NORM RATIO 1.1 (2.0-3.5)
[2020-07-21 23:49] LABS: BASO % 0.2 % (0.0-1.0); EOS # 0.1 10*3/uL (0.0-0.4); EOS % 0.8 % (1.0-4.0); LYMPH # 1.4 10*3/uL (1.3-4.4); MEAN CELL VOLUME 90.4 fl (80.0-94.0); MEAN CORPUSCULAR HGB 31.4 pg (27.0-31.0); MEAN CORPUSCULAR HGB CONC 34.7 g/dl (33.0-37.0); MEAN PLATELET VOLUME 9.3 fl (9.6-12.3); MONO # 0.8 10*3/uL (0.1-1.0); MONO % 7.1 % (3.0-9.0); NEUT # 8.7 10*3/uL (2.3-7.9); NEUT % 78.5 % (47.0-73.0); PLATELET COUNT AUTOMATED 227 10*3/uL (130-400); RED BLOOD COUNT 3.76 10*6/uL (4.50-5.90); RED CELL DISTRI WIDTH 12.6 % (0-14.5); WHITE BLOOD COUNT 11.1 10*3/uL (4.8-10.8)
[2020-07-22 01:28] VITALS: BP 126/68
[2020-07-22] MEDS ORDERED: SEMGLEE100 UNIT/1 SQ (01:40)
[2020-07-22] MEDS ORDERED: METFORMIN850 MG PO (01:42)
[2020-07-22] MEDS ORDERED: ELIQUIS5 M1 PO (01:47)
[2020-07-22] MEDS ORDERED: BASAG SOL SC (01:48)
[2020-07-22 03:17] VITALS: BP 124/72
[2020-07-22 05:33] LABS: BILIRUBIN Negative (Negative); BLOOD Negative (Negative); CLARITY Clear (Clear); COLOR Yellow (Yellow); GLUCOSE Negative (Negative); KETONE Negative (Negative); LEUKO ESTERASE Negative (Negative); NITRITE Negative (Negative); PH 5.5 (4.5-8.0); SPECIFIC GRAVITY <= 1.005 (1.001-1.030); UROBILINOGEN 0.2 E.U./dl (0.0-1.0)
[2020-07-22 05:39] VITALS: BP 108/66
[2020-07-22 05:43] LABS: RBC 0-2 rbc/hpf (0-2); WBC 0-2 wbc/hpf (0-5)
[2020-07-22 07:19] LABS: BASO % 0.3 % (0.0-1.0); EOS # 0.1 10*3/uL (0.0-0.4); EOS % 1.4 % (1.0-4.0); HEMATOCRIT 31.4 % (42.0-52.0); LYMPH # 1.5 10*3/uL (1.3-4.4); LYMPH % 23.3 % (27.0-41.0); MEAN CELL VOLUME 92.1 fl (80.0-94.0); MEAN CORPUSCULAR HGB 31.4 pg (27.0-31.0); MEAN CORPUSCULAR HGB CONC 34.1 g/dl (33.0-37.0); MEAN PLATELET VOLUME 9.7 fl (9.6-12.3); MONO # 0.6 10*3/uL (0.1-1.0); MONO % 8.7 % (3.0-9.0); NEUT # 4.2 10*3/uL (2.3-7.9); NEUT % 66.1 % (47.0-73.0); PLATELET COUNT AUTOMATED 221 10*3/uL (130-400); RED BLOOD COUNT 3.41 10*6/uL (4.50-5.90); RED CELL DISTRI WIDTH 12.8 % (0-14.5); WHITE BLOOD COUNT 6.3 10*3/uL (4.8-10.8)
[2020-07-22 07:21] LABS: ACT PARTIAL THROMBO TIME 28.5 SECONDS (20.0-32.1); INTERNATIONAL NORM RATIO 1.1 (2.0-3.5)
[2020-07-22 07:40] LABS: BUN 12 mg/dl (7-24); CHLORIDE 101 mmol/L (98-107); CREATININE 0.91 mg/dL (0.70-1.30); POTASSIUM 3.8 mmol/L (3.5-5.1); SGOT/AST 59 IU/L (3-35); SGPT/ALT 25 U/L (12-78); SODIUM 134 mmol/L (136-145); TOTAL PROTEIN 6.2 gm/dL (6.4-8.2)
[2020-07-22 07:41] LABS: ALKALINE PHOSPHATASE 54 U/L (45-117)
[2020-07-22] MEDS ORDERED: OLANZAPINE5 MG PO (09:04)
[2020-07-22 11:10] VITALS: BP 110/78
[2020-07-22 14:01] VITALS: BP 112/64
== END 2020-07-22 15:01 ==
LOC: ED 19:29 → EDHOLD 07-22 00:25 → 5E 07-22 13:11 → EDHOLD 07-22 13:11 → 5E 07-22 13:11 → EDHOLD 07-22 15:01
PROVIDERS: Hospitalist; Internal Medicine; ADMIT Internal Medicine; ATTEND Internal Medicine
DX: I47.1 Supraventricular tachycardia (principal); G93.41 Metabolic encephalopathy; S01.312A Laceration without foreign body of left ear, initial encounter; R62.7 Adult failure to thrive; I10 Essential (primary) hypertension; R77.8 Other specified abnormalities of plasma proteins; D64.9 Anemia, unspecified; E11.65 Type 2 diabetes mellitus with hyperglycemia; R74.01 Elevation of levels of liver transaminase levels; D72.829 Elevated white blood cell count, unspecified; H90.3 Sensorineural hearing loss, bilateral; F03.90 Unspecified dementia, unspecified severity, without behavioral disturbance, psychotic disturbance, mood disturbance, and anxiety; F32.9 Major depressive disorder, single episode, unspecified; W19.XXXA Unspecified fall, initial encounter; Y93.89 Activity, other specified; Y92.89 Other specified places as the place of occurrence of the external cause; Y99.8 Other external cause status; Z98.890 Other specified postprocedural states

== ENCOUNTER 2020-11-05 05:57 | Inpatient (IN) | payer MEDICARE ==
[2020-11-05] VITALS (19 sets, daily range): BP systolic 111–158; BP diastolic 42–100
[~2020-11-05] VITALS: Ht 182.9 cm; Wt 79.4 kg
[~2020-11-05 05:57] MED LIST changes: +BASAG SOL SC; +ELIQUIS5 M1 PO; +METFORMIN850 MG PO; +SEMGLEE100 UNIT/1 SQ
[2020-11-05 06:27] LABS: BASO % 0.2 % (0.0-1.0); EOS % 0.3 % (1.0-4.0); HEMATOCRIT 41.4 % (42.0-52.0); LYMPH # 1.4 10*3/uL (1.3-4.4); LYMPH % 11.5 % (27.0-41.0); MEAN CELL VOLUME 94.5 fl (80.0-94.0); MEAN CORPUSCULAR HGB 31.7 pg (27.0-31.0); MEAN CORPUSCULAR HGB CONC 33.6 g/dl (33.0-37.0); MEAN PLATELET VOLUME 9.8 fl (9.6-12.3); MONO # 0.7 10*3/uL (0.1-1.0); MONO % 5.6 % (3.0-9.0); NEUT # 10.2 10*3/uL (2.3-7.9); NEUT % 82.1 % (47.0-73.0); PLATELET COUNT AUTOMATED 217 10*3/uL (130-400); RED BLOOD COUNT 4.38 10*6/uL (4.50-5.90); RED CELL DISTRI WIDTH 12.4 % (0-14.5); WHITE BLOOD COUNT 12.4 10*3/uL (4.8-10.8)
[2020-11-05 06:44] LABS: ALBUMIN 3.6 gm/dl (3.1-4.5); ALKALINE PHOSPHATASE 52 U/L (45-117); BUN 20 mg/dl (7-24); CHLORIDE 107 mmol/L (98-107); POTASSIUM 4.2 mmol/L (3.5-5.1); SGOT/AST 34 IU/L (3-35); SGPT/ALT 28 U/L (12-78); SODIUM 137 mmol/L (136-145)
[2020-11-05 06:45] LABS: TROPONIN I < 0.015 ng/ml (<0.045)
[2020-11-05 07:49] LABS: BILIRUBIN Negative (Negative); BLOOD 1+ (Negative); CLARITY Clear (Clear); COLOR Yellow (Yellow); GLUCOSE Negative (Negative); KETONE 1+ (Negative); LEUKO ESTERASE Trace (Negative); NITRITE Negative (Negative); PH 7.5 (4.5-8.0)
[2020-11-05 07:55] LABS: BACTERIA TRACE; EPITHELIAL CELLS 0-2
[2020-11-05] MEDS ORDERED: NAMENDA5 M1 PO (10:48)
[2020-11-05] MEDS ORDERED: CITALOPRAM10 MG PO (10:48)
[2020-11-05] MEDS ORDERED: RIVASTIGMINE TAR3 M1 PO (10:49)
[2020-11-05] MEDS ORDERED: NOVOLIN 70100 UNIT/1 SQ (10:50)
[2020-11-05] MEDS ORDERED: DRONABINOL2.5 MG PO (10:51)
[2020-11-05] MEDS ORDERED: TRULICITY1.5 MG/0.5 SC (10:52)
[2020-11-05] MEDS ORDERED: GLUCOPHAGE1000 MG PO (10:54)
[2020-11-05] MEDS ORDERED: METOPROLOL SUCC25 M2 PO (10:55)
[2020-11-05] MEDS ORDERED: MILK OF MA400 MG/51 PO (10:59)
[2020-11-05] MEDS ORDERED: CORRECTOL5 M1 PO (11:01)
[2020-11-05] MEDS ORDERED: TYLENOL325 M1 PO (11:01)
[2020-11-06] VITALS (10 sets, daily range): BP systolic 112–153; BP diastolic 56–81
[2020-11-06 05:37] LABS: ALBUMIN 3.4 gm/dl (3.1-4.5); ALKALINE PHOSPHATASE 49 U/L (45-117); BUN 16 mg/dl (7-24); CHLORIDE 107 mmol/L (98-107); CREATININE 0.82 mg/dL (0.70-1.30); POTASSIUM 3.8 mmol/L (3.5-5.1); SGOT/AST 57 IU/L (3-35); SGPT/ALT 31 U/L (12-78); SODIUM 138 mmol/L (136-145); TOTAL PROTEIN 6.7 gm/dL (6.4-8.2)
[2020-11-06 06:18] LABS: BASO % 0.4 % (0.0-1.0); EOS # 0.1 10*3/uL (0.0-0.4); EOS % 0.9 % (1.0-4.0); HEMATOCRIT 37.5 % (42.0-52.0); LYMPH # 2.4 10*3/uL (1.3-4.4); LYMPH % 30.4 % (27.0-41.0); MEAN CELL VOLUME 96.4 fl (80.0-94.0); MEAN CORPUSCULAR HGB 32.1 pg (27.0-31.0); MEAN CORPUSCULAR HGB CONC 33.3 g/dl (33.0-37.0); MEAN PLATELET VOLUME 10.6 fl (9.6-12.3); MONO # 0.7 10*3/uL (0.1-1.0); MONO % 9.3 % (3.0-9.0); NEUT # 4.7 10*3/uL (2.3-7.9); NEUT % 58.9 % (47.0-73.0); PLATELET COUNT AUTOMATED 194 10*3/uL (130-400); RED BLOOD COUNT 3.89 10*6/uL (4.50-5.90); RED CELL DISTRI WIDTH 12.7 % (0-14.5); WHITE BLOOD COUNT 7.9 10*3/uL (4.8-10.8)
[2020-11-07] VITALS: BP 157/80
[2020-11-07 08:00] VITALS: BP 136/86
[2020-11-07 12:00] VITALS: BP 132/80
[2020-11-07 16:00] VITALS: BP 132/70
[2020-11-07 20:00] VITALS: BP 142/58
[2020-11-08] VITALS: BP 125/56
[2020-11-08 08:00] VITALS: BP 172/92
[2020-11-08] MEDS ORDERED: OMNICEF300 MG PO (11:14)
[2020-11-08] MEDS ORDERED: Humalog SQ (11:14)
[2020-11-08] MEDS ORDERED: ZITHROMAX500 MG PO (11:15)
[2020-11-08 12:00] VITALS: BP 125/62
== END 2020-11-08 14:00 | DRG 871 ==
LOC: ED 05:57 → EDHOLD 09:17 → 4E 09:17
PROVIDERS: Internal Medicine; Registered Nurse; ADMIT Internal Medicine; ATTEND Internal Medicine
PROC: BD11YZZ Fluoroscopy of Esophagus using Other Contrast (ICD-10-PCS; principal; 2020-11-06)
DX: A41.9 Sepsis, unspecified organism (principal); G93.41 Metabolic encephalopathy; J15.6 Pneumonia due to other Gram-negative bacteria; I47.1 Supraventricular tachycardia; E87.2 Acidosis; E44.0 Moderate protein-calorie malnutrition; F03.91 Unspecified dementia, unspecified severity, with behavioral disturbance; I48.92 Unspecified atrial flutter; Z66 Do not resuscitate; E86.0 Dehydration; H91.90 Unspecified hearing loss, unspecified ear; R62.7 Adult failure to thrive; Z20.822 Contact with and (suspected) exposure to COVID-19; I10 Essential (primary) hypertension; D64.9 Anemia, unspecified; E11.9 Type 2 diabetes mellitus without complications; Z79.1 Long term (current) use of non-steroidal anti-inflammatories (NSAID); Z79.899 Other long term (current) drug therapy; Z79.84 Long term (current) use of oral hypoglycemic drugs; Z68.23 Body mass index [BMI] 23.0-23.9, adult

== ENCOUNTER 2021-04-24 15:49 | Inpatient (IN) | payer MEDICARE ==
[~2021-04-24] VITALS: Ht 177.8 cm; Wt 82.6 kg
[2021-04-24] VITALS (10 sets, daily range): BP systolic 106–143; BP diastolic 45–75
[~2021-04-24 15:49] MED LIST changes: +CITALOPRAM10 MG PO; +CORRECTOL5 M1 PO; +DRONABINOL2.5 MG PO; +GLUCOPHAGE1000 MG PO; +Humalog SQ; +METOPROLOL SUCC25 M2 PO; +MILK OF MA400 MG/51 PO; +NAMENDA5 M1 PO; +NOVOLIN 70100 UNIT/1 SQ; +RIVASTIGMINE TAR3 M1 PO; +TRULICITY1.5 MG/0.5 SC; +TYLENOL325 M1 PO; +ZITHROMAX500 MG PO
[2021-04-24 16:49] LABS: BASO % 0.2 % (0.0-1.0); LYMPH # 0.5 10*3/uL (1.3-4.4); LYMPH % 7.4 % (27.0-41.0); MEAN CELL VOLUME 95.1 fl (80.0-94.0); MEAN CORPUSCULAR HGB 32.9 pg (27.0-31.0); MEAN CORPUSCULAR HGB CONC 34.6 g/dl (33.0-37.0); MEAN PLATELET VOLUME 9.8 fl (9.6-12.3); MONO # 0.4 10*3/uL (0.1-1.0); MONO % 5.9 % (3.0-9.0); NEUT # 5.6 10*3/uL (2.3-7.9); NEUT % 86.2 % (47.0-73.0); PLATELET COUNT AUTOMATED 162 10*3/uL (130-400); RED BLOOD COUNT 3.89 10*6/uL (4.50-5.90); RED CELL DISTRI WIDTH 12.5 % (0-14.5); WHITE BLOOD COUNT 6.5 10*3/uL (4.8-10.8)
[2021-04-24 17:11] LABS: ACT PARTIAL THROMBO TIME 25.7 SECONDS (20.0-32.1)
[2021-04-24 17:19] LABS: ALBUMIN 3.5 gm/dl (3.1-4.5); ALKALINE PHOSPHATASE 55 U/L (45-117); BUN 16 mg/dl (7-24); CHLORIDE 106 mmol/L (98-107); CREATININE 1.01 mg/dL (0.70-1.30); POTASSIUM 4.2 mmol/L (3.5-5.1); SGOT/AST 27 IU/L (3-35); SGPT/ALT 27 U/L (12-78); SODIUM 138 mmol/L (136-145); TOTAL PROTEIN 7.1 gm/dL (6.4-8.2)
[2021-04-24 17:21] LABS: TROPONIN I < 0.015 ng/ml (<0.045)
[2021-04-24 19:54] LABS: BILIRUBIN Negative (Negative); BLOOD Negative (Negative); CLARITY Clear (Clear); COLOR Yellow (Yellow); GLUCOSE 2+ (Negative); KETONE Trace (Negative); LEUKO ESTERASE Negative (Negative); NITRITE Negative (Negative); PH 6.5 (4.5-8.0); SPECIFIC GRAVITY 1.015 (1.001-1.030)
[2021-04-24 20:03] LABS: EPITHELIAL CELLS 0-2; RBC 0-2 rbc/hpf (0-2); WBC 0-2 wbc/hpf (0-5)
[2021-04-24] MEDS ORDERED: REMERON15 M2 PO (20:38)
[2021-04-24] MEDS ORDERED: RIVASTIGMINE T1.5 M1 PO (20:39)
[2021-04-25] VITALS (20 sets, daily range): BP systolic 108–133; BP diastolic 46–102
[2021-04-25 05:09] LABS: ALBUMIN 3.1 gm/dl (3.1-4.5); ALKALINE PHOSPHATASE 47 U/L (45-117); BUN 14 mg/dl (7-24); CHLORIDE 109 mmol/L (98-107); CREATININE 0.85 mg/dL (0.70-1.30); POTASSIUM 3.6 mmol/L (3.5-5.1); SGOT/AST 27 IU/L (3-35); SGPT/ALT 25 U/L (12-78); SODIUM 138 mmol/L (136-145); TOTAL PROTEIN 6.2 gm/dL (6.4-8.2)
[2021-04-25 06:05] LABS: BASO % 0.4 % (0.0-1.0); EOS % 0.4 % (1.0-4.0); HEMATOCRIT 34.2 % (42.0-52.0); LYMPH # 1.1 10*3/uL (1.3-4.4); LYMPH % 21.3 % (27.0-41.0); MEAN CELL VOLUME 97.4 fl (80.0-94.0); MEAN CORPUSCULAR HGB 32.8 pg (27.0-31.0); MEAN CORPUSCULAR HGB CONC 33.6 g/dl (33.0-37.0); MEAN PLATELET VOLUME 11.1 fl (9.6-12.3); MONO # 0.4 10*3/uL (0.1-1.0); MONO % 8.6 % (3.0-9.0); NEUT # 3.5 10*3/uL (2.3-7.9); NEUT % 68.9 % (47.0-73.0); PLATELET COUNT AUTOMATED 139 10*3/uL (130-400); RED BLOOD COUNT 3.51 10*6/uL (4.50-5.90); RED CELL DISTRI WIDTH 12.7 % (0-14.5)
[2021-04-25 20:51] LABS: BILIRUBIN Negative (Negative); BLOOD Negative (Negative); CLARITY Clear (Clear); COLOR Yellow (Yellow); GLUCOSE 2+ (Negative); KETONE 1+ (Negative); LEUKO ESTERASE 2+ (Negative); NITRITE Negative (Negative)
[2021-04-25 21:17] LABS: BACTERIA TRACE; EPITHELIAL CELLS 0-2; RBC 0-2 rbc/hpf (0-2); WBC TNTC wbc/hpf (0-5)
[2021-04-26 07:04] LABS: BASO % 0.1 % (0.0-1.0); EOS # 0.1 10*3/uL (0.0-0.4); LYMPH # 2.2 10*3/uL (1.3-4.4); LYMPH % 31.1 % (27.0-41.0); MEAN CELL VOLUME 97.5 fl (80.0-94.0); MEAN CORPUSCULAR HGB 32.5 pg (27.0-31.0); MEAN CORPUSCULAR HGB CONC 33.3 g/dl (33.0-37.0); MEAN PLATELET VOLUME 10.4 fl (9.6-12.3); MONO # 0.8 10*3/uL (0.1-1.0); MONO % 11.2 % (3.0-9.0); NEUT % 56.5 % (47.0-73.0); PLATELET COUNT AUTOMATED 139 10*3/uL (130-400); RED CELL DISTRI WIDTH 12.5 % (0-14.5)
[2021-04-26 07:15] LABS: BUN 13 mg/dl (7-24); CHLORIDE 105 mmol/L (98-107); CREATININE 0.83 mg/dL (0.70-1.30); POTASSIUM 3.4 mmol/L (3.5-5.1); SODIUM 138 mmol/L (136-145)
[2021-04-26 08:00] VITALS: BP 134/66
[2021-04-26] MEDS ORDERED: LOPRESSOR25 MG PO (11:50)
[2021-04-26 12:00] VITALS: BP 124/63
== END 2021-04-26 17:40 | DRG 291 ==
LOC: ED 15:49 → EDHOLD 17:56 → 4E 04-25 09:55
PROVIDERS: Emergency Medicine; Hospitalist; Internal Medicine Cardiovascular Disease; Student in an Organized Health Care Education/Training Program; ADMIT Emergency Medicine; ATTEND Emergency Medicine
DX: I11.0 Hypertensive heart disease with heart failure (principal); I50.33 Acute on chronic diastolic (congestive) heart failure; I47.1 Supraventricular tachycardia; R65.10 Systemic inflammatory response syndrome (SIRS) of non-infectious origin without acute organ dysfunction; J98.11 Atelectasis; F03.90 Unspecified dementia, unspecified severity, without behavioral disturbance, psychotic disturbance, mood disturbance, and anxiety; D64.9 Anemia, unspecified; E11.65 Type 2 diabetes mellitus with hyperglycemia; Z79.1 Long term (current) use of non-steroidal anti-inflammatories (NSAID); Z79.899 Other long term (current) drug therapy

== ENCOUNTER 2021-06-01 17:58 | Inpatient (IN) | payer MEDICARE ==
[~2021-06-01] VITALS: Ht 177.8 cm; Wt 79.0 kg
[~2021-06-01 17:58] MED LIST changes: -CORRECTOL5 M1 PO; +DOCUSATE SODIU100 MG PO; +GENTLE LAXATIVE5 M2 PO; -GLUCOPHAGE1000 MG PO; +LOPRESSOR25 MG PO; +METFORMIN HYD1000 MG PO; +REMERON15 M2 PO; +RIVASTIGMINE T1.5 M1 PO; -STOOL SOFTENER100 MG PO
[2021-06-01 18:03] VITALS: BP 120/76
[2021-06-01 18:27] LABS: BASO % 0.1 % (0.0-1.0); HEMATOCRIT 36.3 % (42.0-52.0); LYMPH # 1.1 10*3/uL (1.3-4.4); LYMPH % 8.6 % (27.0-41.0); MEAN CELL VOLUME 95.3 fl (80.0-94.0); MEAN CORPUSCULAR HGB 32.5 pg (27.0-31.0); MEAN CORPUSCULAR HGB CONC 34.2 g/dl (33.0-37.0); MONO # 1.2 10*3/uL (0.1-1.0); MONO % 9.5 % (3.0-9.0); NEUT # 10.3 10*3/uL (2.3-7.9); NEUT % 81.3 % (47.0-73.0); PLATELET COUNT AUTOMATED 163 10*3/uL (130-400); RED BLOOD COUNT 3.81 10*6/uL (4.50-5.90); RED CELL DISTRI WIDTH 12.6 % (0-14.5); WHITE BLOOD COUNT 12.6 10*3/uL (4.8-10.8)
[2021-06-01 18:43] LABS: ACT PARTIAL THROMBO TIME 29.3 SECONDS (20.0-32.1)
[2021-06-01 18:51] LABS: ALBUMIN 3.2 gm/dl (3.1-4.5); ALKALINE PHOSPHATASE 58 U/L (45-117); BUN 17 mg/dl (7-24); CHLORIDE 101 mmol/L (98-107); CREATININE 1.11 mg/dL (0.70-1.30); LIPASE 82 U/L (73-393); POTASSIUM 4.1 mmol/L (3.5-5.1); SGOT/AST 19 IU/L (3-35); SGPT/ALT 22 U/L (12-78); SODIUM 133 mmol/L (136-145); TOTAL PROTEIN 7.5 gm/dL (6.4-8.2)
[2021-06-01 20:06] VITALS: BP 122/77
[2021-06-01 20:33] VITALS: BP 135/76
[2021-06-01] MEDS ORDERED: FEVER REDUCER650 MG R (21:41)
[2021-06-01] MEDS ORDERED: GLUCAGON EMERGEN1 M1 IJ (21:48)
[2021-06-01] MEDS ORDERED: KETOCONAZOLE 1120 ML T (21:53)
[2021-06-02] VITALS: BP 149/71
[2021-06-02 06:34] LABS: BASO % 0.1 % (0.0-1.0); EOS % 0.2 % (1.0-4.0); HEMATOCRIT 36.2 % (42.0-52.0); LYMPH # 2.2 10*3/uL (1.3-4.4); LYMPH % 18.7 % (27.0-41.0); MEAN CELL VOLUME 94.8 fl (80.0-94.0); MEAN CORPUSCULAR HGB 32.5 pg (27.0-31.0); MEAN CORPUSCULAR HGB CONC 34.3 g/dl (33.0-37.0); MEAN PLATELET VOLUME 9.9 fl (9.6-12.3); MONO # 1.1 10*3/uL (0.1-1.0); MONO % 9.2 % (3.0-9.0); NEUT # 8.4 10*3/uL (2.3-7.9); NEUT % 71.5 % (47.0-73.0); PLATELET COUNT AUTOMATED 159 10*3/uL (130-400); RED BLOOD COUNT 3.82 10*6/uL (4.50-5.90); RED CELL DISTRI WIDTH 12.5 % (0-14.5); WHITE BLOOD COUNT 11.8 10*3/uL (4.8-10.8)
[2021-06-02 06:57] LABS: CHLORIDE 103 mmol/L (98-107); POTASSIUM 3.7 mmol/L (3.5-5.1); SODIUM 135 mmol/L (136-145)
[2021-06-02 07:10] LABS: ALBUMIN 3.1 gm/dl (3.1-4.5); ALKALINE PHOSPHATASE 57 U/L (45-117); BUN 13 mg/dl (7-24); CHOLESTEROL 123 mg/dL (<200); CREATININE 0.88 mg/dL (0.70-1.30); FREE T4 0.98 ng/dl (0.76-1.46); LDL CHOLESTEROL 57 mg/dL (9-159); SGOT/AST 20 IU/L (3-35); SGPT/ALT 20 U/L (12-78); TOTAL PROTEIN 7.3 gm/dL (6.4-8.2); TRIGLYCERIDES 107 mg/dl (<150)
[2021-06-02 08:00] VITALS: BP 138/86
[2021-06-02 08:07] LABS: VITAMIN D, 25-HYDROXY 19.5 ng/mL (30-100)
[2021-06-02 12:00] VITALS: BP 141/87
[2021-06-02 13:14] LABS: BILIRUBIN Negative (Negative); BLOOD Negative (Negative); CLARITY Clear (Clear); COLOR Yellow (Yellow); GLUCOSE 1+ (Negative); KETONE Negative (Negative); LEUKO ESTERASE Negative (Negative); NITRITE Negative (Negative)
[2021-06-02 13:27] LABS: MUCOUS 2+
[2021-06-02 16:00] VITALS: BP 154/78
[2021-06-02 20:00] VITALS: BP 134/73
[2021-06-03] VITALS: BP 150/85
[2021-06-03 06:58] LABS: BASO % 0.2 % (0.0-1.0); EOS # 0.1 10*3/uL (0.0-0.4); EOS % 0.7 % (1.0-4.0); HEMATOCRIT 38.7 % (42.0-52.0); LYMPH # 3.2 10*3/uL (1.3-4.4); LYMPH % 30.4 % (27.0-41.0); MEAN CORPUSCULAR HGB 32.3 pg (27.0-31.0); MEAN CORPUSCULAR HGB CONC 33.6 g/dl (33.0-37.0); MEAN PLATELET VOLUME 10.5 fl (9.6-12.3); MONO # 0.8 10*3/uL (0.1-1.0); MONO % 7.5 % (3.0-9.0); NEUT # 6.4 10*3/uL (2.3-7.9); NEUT % 60.9 % (47.0-73.0); PLATELET COUNT AUTOMATED 201 10*3/uL (130-400); RED BLOOD COUNT 4.03 10*6/uL (4.50-5.90); RED CELL DISTRI WIDTH 12.5 % (0-14.5); WHITE BLOOD COUNT 10.5 10*3/uL (4.8-10.8)
[2021-06-03 07:11] LABS: BUN 14 mg/dl (7-24); CHLORIDE 103 mmol/L (98-107); POTASSIUM 3.8 mmol/L (3.5-5.1); SODIUM 136 mmol/L (136-145)
[2021-06-03 08:00] VITALS: BP 138/85
[2021-06-03] MEDS ORDERED: DILTIAZEM CD240 MG PO (11:42)
[2021-06-03 12:00] VITALS: BP 152/89
== END 2021-06-03 16:54 | DRG 308 ==
LOC: ED 17:58 → EDHOLD 18:41 → 5E 18:41
PROVIDERS: Emergency Medicine; Internal Medicine; ADMIT Family Medicine; ATTEND Family Medicine
DX: I47.1 Supraventricular tachycardia (principal); G93.41 Metabolic encephalopathy; E87.1 Hypo-osmolality and hyponatremia; R65.10 Systemic inflammatory response syndrome (SIRS) of non-infectious origin without acute organ dysfunction; Z20.822 Contact with and (suspected) exposure to COVID-19; I48.91 Unspecified atrial fibrillation; I50.9 Heart failure, unspecified; I11.0 Hypertensive heart disease with heart failure; D53.9 Nutritional anemia, unspecified; E11.65 Type 2 diabetes mellitus with hyperglycemia; F32.A Depression, unspecified; F03.90 Unspecified dementia, unspecified severity, without behavioral disturbance, psychotic disturbance, mood disturbance, and anxiety; Z79.4 Long term (current) use of insulin; Z79.1 Long term (current) use of non-steroidal anti-inflammatories (NSAID); Z79.899 Other long term (current) drug therapy

== ENCOUNTER 2022-04-14 13:58 | Inpatient (IN) | payer OTHER, MEDICARE ==
[~2022-04-14] VITALS: Ht 177.8 cm; Wt 78.9 kg
[~2022-04-14 13:58] MED LIST changes: +DILTIAZEM CD240 MG PO; +EXELON1 EAC1 T; +FEVER REDUCER650 MG R; +GLUCAGON EMERGEN1 M1 IJ; +HUMALOG100 UNIT/2 SC; +KETOCONAZOLE 1120 ML T; +ONDANSETRON HYDR4 MG PO; +VISTARIL25 MG PO
[2022-04-14 14:00] VITALS: BP 150/95
[2022-04-14 16:00] VITALS: BP 138/89
[2022-04-14 20:00] VITALS: BP 134/82
[2022-04-15] VITALS: BP 134/90
== END 2022-04-15 09:38 | DRG 71 ==
LOC: 4E 13:58
PROVIDERS: ADMIT Internal Medicine; ATTEND Internal Medicine
DX: G93.41 Metabolic encephalopathy (principal); E87.20 Acidosis, unspecified; I48.91 Unspecified atrial fibrillation; I10 Essential (primary) hypertension; E11.65 Type 2 diabetes mellitus with hyperglycemia; F03.90 Unspecified dementia, unspecified severity, without behavioral disturbance, psychotic disturbance, mood disturbance, and anxiety; Z66 Do not resuscitate; Z51.5 Encounter for palliative care